=== PATIENT | male | born 1955 | race Caucasian/White ===

== ENCOUNTER 2018-08-21 21:24 | Inpatient (IN) | payer MEDICARE ==
[~2018-08-21] VITALS: Ht 182.9 cm; Wt 132.0 kg
--- NOTE | 2018-08-21 21:39 | PHYS DOC ---
Adult General Chief Complaint Chief Complaint: MECHANICAL FALL HPI HPI Patient is a 63 year old male presents via EMS for evaluation of left hip pain after ground level fall on the ice tonight. Patient has been drinking alcohol, slipped on the ice, was unable to get up secondary to left hip pain. Patient denies hitting his head or loss of consciousness. He denies other injuries. Review of Systems Review of Systems Constitutional: Denies fever or chills [] Eyes: Denies change in visual acuity, redness, or eye pain [] HENT: Denies nasal congestion or sore throat [] Respiratory: Denies cough or shortness of breath [] Cardiovascular: No additional information not addressed in HPI [] GI: Denies abdominal pain, nausea, vomiting, bloody stools or diarrhea [] : Denies dysuria or hematuria [] Musculoskeletal: Left hip pain[] Integument: Denies rash or skin lesions [] Neurologic: Denies headache, focal weakness or sensory changes [] Endocrine: Denies polyuria or polydipsia [] All other systems were reviewed and found to be within normal limits, except as documented in this note. Current Medications Current Medications Current Medications Medications (Trade) Dose Ordered Sig/Rosa Start Time Stop Time Status Last Admin Dose Admin Fentanyl Citrate (Fentanyl 2ml Vial) 50 mcg 1X ONCE 08/22/18 00:00 08/22/18 00:01 DC 08/22/18 00:15 50 MCG Morphine Sulfate (Morphine Sulfate) 4 mg PRN Q2HR PRN 08/22/18 00:30 08/23/18 00:29 UNV Ondansetron HCl (Zofran) 4 mg PRN Q8HRS PRN 08/22/18 00:30 08/23/18 00:29 UNV Allergies Allergies Allergies Coded Allergies Type Severity Reaction Last Updated Verified No Known Drug Allergies 08/21/18 No Physical Exam Physical Exam Constitutional: Well developed, well nourished, + IN PAIN, non-toxic appearance , SMELLS OF ETOH. [] HENT: Normocephalic, atraumatic, nose normal. [] Eyes: PERRLA, EOMI, conjunctiva normal, no discharge. [] Neck: Normal range of motion, no tenderness, supple, no stridor. [] Cardiovascular:Heart rate regular rhythm, no murmur [] Lungs & Thorax: Bilateral breath sounds clear to auscultation [] Abdomen: Bowel sounds normal, soft, no tenderness, no masses, no pulsatile masses. [] Skin: Warm, dry, no erythema, no rash. [] Back: No tenderness. [] Extremities: LEFT HIP TTP, SHORTENED AND ROTATED. [] Neurologic: Alert and oriented X 3, normal motor function, normal sensory function, no focal deficits noted. [] Psychologic: Affect normal, judgement normal, mood normal. [] Current Patient Data Vital Signs Vital Signs Date Time Temp Pulse Resp B/P (MAP) Pulse Ox O2 Delivery O2 Flow Rate FiO2 08/22/18 00:15 16 96 08/21/18 23:01 Room Air 08/21/18 21:24 98.3 84 197/88 (124) 98.3 Lab Values Laboratory Tests Test 08/21/18 22:00 08/21/18 23:10 Sodium Level 138 mmol/L (136-145) Potassium Level 4.4 mmol/L (3.5-5.1) Chloride Level 100 mmol/L (98-107) Carbon Dioxide Level 26 mmol/L (21-32) Anion Gap 12 (6-14) Blood Urea Nitrogen 7 mg/dL (8-26) L Creatinine 0.9 mg/dL (0.7-1.3) Estimated GFR (Cockcroft-Gault) 84.7 BUN/Creatinine Ratio 8 (6-20) Glucose Level 133 mg/dL (70-99) H Calcium Level 8.6 mg/dL (8.5-10.1) Total Bilirubin 0.8 mg/dL (0.2-1.0) Aspartate Amino Transferase (AST) 69 U/L (15-37) H Alanine Aminotransferase (ALT) 58 U/L (16-63) Alkaline Phosphatase 173 U/L (46-116) H Total Protein 8.2 g/dL (6.4-8.2) Albumin 3.3 g/dL (3.4-5.0) L Albumin/Globulin Ratio 0.7 (1.0-1.7) L White Blood Count 5.5 x10^3/uL (4.0-11.0) Red Blood Count 4.18 x10^6/uL (4.30-5.70) L Hemoglobin 13.0 g/dL (13.0-17.5) Hematocrit 38.5 % (39.0-53.0) L Mean Corpuscular Volume 92 fL (79-100) Mean Corpuscular Hemoglobin 31 pg (25-35) Mean Corpuscular Hemoglobin Concent 34 g/dL (31-37) Red Cell Distribution Width 15.1 % (11.5-14.5) H Platelet Count 128 x10^3/uL (140-400) L Neutrophils (%) (Auto) 60 % (31-73) Lymphocytes (%) (Auto) 23 % (24-48) L Monocytes (%) (Auto) 15 % (0-9) H Eosinophils (%) (Auto) 2 % (0-3) Basophils (%) (Auto) 1 % (0-3) Neutrophils # (Auto) 3.3 x10^3uL (1.8-7.7) Lymphocytes # (Auto) 1.2 x10^3/uL (1.0-4.8) Monocytes # (Auto) 0.8 x10^3/uL (0.0-1.1) Eosinophils # (Auto) 0.1 x10^3/uL (0.0-0.7) Basophils # (Auto) 0.1 x10^3/uL (0.0-0.2) Laboratory Tests 08/21/18 23:10 Laboratory Tests 08/21/18 22:00 EKG EKG [] Radiology/Procedures Radiology/Procedures [REASON: fall, +etoh PROCEDURE: CT HEAD AND CERVICAL SPINE WO Examination: CT HEAD AND CERVICAL SPINE WO History: PT FELL; HIT HEAD/PAIN TO HEAD/NECK Comparison/Correlation: 04/29/2011 CT head without contrast Findings: Axial images of the head were obtained without contrast. Sagittal and coronal reformatted images of the cervical spine were obtained. Atrophy is present. Volume loss ventriculomegaly noted. Right temporoparietal old infarct is present. No midline shift or mass effect. Atlantoaxial joint degenerative remodeling is present. Alignment of the cervical spine is normal. Evaluation of the cervical spine is limited due to significant artifact. No displaced fracture or bony destruction. Multilevel disc space narrowing of the lower cervical spine is present. Impression: No intracranial hemorrhage. Old right temporoparietal infarct. Alignment of the cervical spine is normal. No evidence of cervical spine fracture but this exam is limited due to artifact. Electronically signed by: Robert Bond MD (08/21/2018 11:41 PM) [facility] REASON: LEFT HIP PAIN AFTER FALL PROCEDURE: CT LOWER EXTREMITY WO LEFT Examination: CT left hip without contrast HISTORY: History of fall, left hip pain COMPARISON: None available Technique: Axial CT images of the left upper performed a contrast Exposure: One or more of the following individualized dose reduction techniques were utilized for this examination: 1. Automated exposure control 2. Adjustment of the mA and/or kV according to patient size 3. Use of iterative reconstruction technique. FINDINGS: The left femoral head is within the acetabulum. There is displaced intertrochanteric fracture of the left femur. The lesser trochanter is slightly displaced medially. Moderate joint space loss identified in the left hip joint likely degeneration. Partially visualized distended urinary bladder IMPRESSION: Displaced intertrochanteric fracture left femur. Electronically signed by: Sven Melvin MD (08/22/2018 12:04 AM) [facility] ] Course & Med Decision Making Course & Med Decision Making Pertinent Labs and Imaging studies reviewed. (See chart for details) [Patient has a left hip fracture, extremity is neurovascular intact, he is admitted to medicine with Dr. anderson, Dr. Novoa was called and notified of admission for hip fracture.] Dragon Disclaimer Dragon Disclaimer This electronic medical record was generated, in whole or in part, using a voice recognition dictation system. Departure Departure Impression: Primary Impression: Hip fracture Disposition: 09 ADMITTED INPATIENT Admitting Physician: Suzanne Anderson Condition: STABLE JAVIER BRAUN TREKKING GUIDE Aug 21, 2018 21:39
[2018-08-21 22:20] LABS: CALCIUM 8.6 mg/dL (8.5-10.1); CREATININE 0.9 mg/dL (0.7-1.3); GFR 84.7; POTASSIUM 4.4 mmol/L (3.5-5.1)
[2018-08-21 22:26] LABS: ALBUMIN 3.3 g/dL (3.4-5.0); ALBUMIN/GLOBULIN RATIO 0.7 (1.0-1.7); TOTAL BILIRUBIN 0.8 mg/dL (0.2-1.0); TOTAL PROTEIN 8.2 g/dL (6.4-8.2)
[2018-08-21] MEDS: fentaNYL PF VIAL 100 MCG/2 ML VIAL IV ONE ×2 (22:54→23:01)
[2018-08-21 23:20] LABS: BASO # 0.1 x10^3/uL (0.0-0.2); BASO % 1 % (0-3); EOS # 0.1 x10^3/uL (0.0-0.7); EOS % 2 % (0-3); HEMATOCRIT 38.5 % (39.0-53.0); LYMPH # 1.2 x10^3/uL (1.0-4.8); LYMPH % 23 % (24-48); MEAN CORPUSCULAR HEMOGLOBIN 31 pg (25-35); MEAN CORPUSCULAR HGB CONC 34 g/dL (31-37); MEAN CORPUSCULAR VOLUME 92 fL (79-100); MONO # 0.8 x10^3/uL (0.0-1.1); MONO % 15 % (0-9); NEUT # 3.3 x10^3uL (1.8-7.7); NEUT % 60 % (31-73); PLATELET COUNT 128 x10^3/uL (140-400); RED BLOOD COUNT 4.18 x10^6/uL (4.30-5.70); RED CELL DISTRIBUTION WIDTH 15.1 % (11.5-14.5); WHITE BLOOD COUNT 5.5 x10^3/uL (4.0-11.0)
--- NOTE | 2018-08-21 23:45 | RAD ---
Examination: CT HEAD AND CERVICAL SPINE WO History: PT FELL; HIT HEAD/PAIN TO HEAD/NECK Comparison/Correlation: 04/29/2011 CT head without contrast Findings: Axial images of the head were obtained without contrast. Sagittal and coronal reformatted images of the cervical spine were obtained. Atrophy is present. Volume loss ventriculomegaly noted. Right temporoparietal old infarct is present. No midline shift or mass effect. Atlantoaxial joint degenerative remodeling is present. Alignment of the cervical spine is normal. Evaluation of the cervical spine is limited due to significant artifact. No displaced fracture or bony destruction. Multilevel disc space narrowing of the lower cervical spine is present. Impression: No intracranial hemorrhage. Old right temporoparietal infarct. Alignment of the cervical spine is normal. No evidence of cervical spine fracture but this exam is limited due to artifact. Electronically signed by: Robert Bond MD (08/21/2018 11:41 PM) [facility]
[2018-08-22] MEDS ORDERED: fentaNYL PF VIAL 100 MCG/2 ML VIAL IV ONE
--- NOTE | 2018-08-22 00:09 | RAD ---
Examination: CT left hip without contrast HISTORY: History of fall, left hip pain COMPARISON: None available Technique: Axial CT images of the left upper performed a contrast Exposure: One or more of the following individualized dose reduction techniques were utilized for this examination: 1. Automated exposure control 2. Adjustment of the mA and/or kV according to patient size 3. Use of iterative reconstruction technique. FINDINGS: The left femoral head is within the acetabulum. There is displaced intertrochanteric fracture of the left femur. The lesser trochanter is slightly displaced medially. Moderate joint space loss identified in the left hip joint likely degeneration. Partially visualized distended urinary bladder IMPRESSION: Displaced intertrochanteric fracture left femur. Electronically signed by: Sven Melvin MD (08/22/2018 12:04 AM) [facility]
[2018-08-22] MEDS ORDERED: ONDANSETRON PF 4 MG/2 ML VIAL. IV PRN (00:30)
[2018-08-22] MEDS: MORPHINE SULFATE 4 MG/ML VIAL. IV PRN ×7 (01:31→22:50)
--- NOTE | 2018-08-22 01:41 | RAD ---
Examination: Frontal view of the chest and 2 views of the left hip HISTORY: History of preop, hip injury COMPARISON: None available Chest x-ray: Low lung volumes and technique accentuates heart size and pulmonary vascularity. Mild cardiomegaly. There is no acute infiltrate or visualized pneumothorax. Left hip: There is mild displaced fracture of the intertrochanteric portion of the left femur.Moderate joint space loss left hip joint. IMPRESSION: 1. Mild displaced intertrochanteric fracture left femur. 2. No acute cardiopulmonary findings Electronically signed by: Sven Melvin MD (08/22/2018 1:37 AM) [facility]
[2018-08-22 03:00] VITALS: BP 141/64
[2018-08-22 07:00] VITALS: BP 132/64
--- NOTE | 2018-08-22 09:26 | EKG ---
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 : 1955 Requested By: JAVIER BRAUN Order Number: [id number] Reading MD: Aquiles Cha Measurements Intervals [place] Rate: 93 P: -90 WI: 112 QRS: 56 QRSD: 92 T: 43 QT: 372 QTc: 465 Interpretive Statements SINUS RHYTHM Electronically Signed On 08-27-2018 17:37:47 CONTAINER PACKER OPERATOR by Aquiles Cha
[2018-08-22 11:00] VITALS: BP 131/64
--- NOTE | 2018-08-22 11:08 | NUR ---
SW following for discharge planning. Discussed with RN. Pt is having surgery today. SW will continue to follow.
[2018-08-22] MEDS ORDERED: LABETALOL 20 MG/4 ML DISP.SYRIN. IVP PRN (11:45)
[2018-08-22] MEDS ORDERED: KETOROLAC 15 MG/ML VIAL. IV ONE (11:45)
--- NOTE | 2018-08-22 11:54 | PDOC1 ---
History and Physical Date of Admission Date of Admission DATE: 08/22/18 TIME: 11:51 Source Source: Chart review, Patient History of Present Illness History of Present Illness Mr. Hines is a 63 year old male admit after a hard fall on the ice, that cause acute left hip pain. He had been drinking alcohol, and fell very hard, and was unable to get up secondary to left hip pain, he denies hitting his head or loss of consciousness. He denies other injuries. he has been retired for some time from an [employer] company. [place]. describes himself as active and can walk up stairs without problems he is unaware of any medical problems other than his weight, takes no meds Past Medical History Cardiovascular: No pertinent hx Pulmonary: No pertinent hx GI: No pertinent hx Heme/Onc: No pertinent hx Rheumatologic: No pertinent hx Infectious disease: No pertinent hx ENT: No pertinent hx Renal/: No pertinent hx Family History Family History: Hypertension Social History Smoke: No ALCOHOL: social Drugs: None Current Problem List Problem List Problems Medical Problems: (1) Hip fracture Status: Acute Current Medications Current Medications Current Medications Fentanyl Citrate (Fentanyl 2ml Vial) 50 mcg 1X ONCE IV Last administered on at 23:01; Start 08/21/18 at 22:00; Stop 08/21/18 at 22:02; Status DC Fentanyl Citrate (Fentanyl 2ml Vial) 50 mcg 1X ONCE IV Last administered on at 00:15; Start 08/22/18 at 00:00; Stop 08/22/18 at 00:01; Status DC Ondansetron HCl (Zofran) 4 mg PRN Q8HRS PRN IV NAUSEA/VOMITING; Start 08/22/18 at 00:30; Stop 08/23/18 at 00:29 Morphine Sulfate (Morphine Sulfate) 4 mg PRN Q2HR PRN IV PAIN Last administered on 08/22/18at 10:25; Start 08/22/18 at 00:30; Stop 08/23/18 at 00:29 Morphine Sulfate 5 mg/Ketorolac Tromethamine 30 mg/Ropivacaine 60 ml/ Epinephrine HCl 0.5 mg/Sodium Chloride 100 ml @ 100 mls/hr 1X ONCE INT ART ; Start 08/23/18 at 06:00; Stop 08/23/18 at 06:59 Labetalol HCl (Normodyne Iv Push) 20 mg PRN Q2HR PRN IVP HYPERTENSION, SEE COMMENTS; Start 08/22/18 at 11:45 Oxycodone/ Acetaminophen (Percocet 5/325) 1 tab PRN Q4HRS PRN PO PAIN; Start at 11:45 Ketorolac Tromethamine (Toradol 15mg Vial) 15 mg 1X ONCE IV ; Start 08/22/18 at 11:45; Stop 08/22/18 at 11:51; Status DC Allergies Allergies: Coded Allergies: No Known Drug Allergies (Unverified , 08/21/18) ROS General: No: Chills, Night Sweats, Fatigue, Malaise, Appetite, Other PSYCHOLOGICAL ROS: No: Anxiety, Behavioral Disorder, Concentration difficultie , Decreased libido, Depression, Disorientation, Hallucinations, Hostility, Irritablity, Memory difficulties, Mood Swings, Obsessive thoughts, Other Eyes: No Blurry vision, No Decreased vision, No Double vision, No Dry eyes, No Excessive tearing, No Eye Pain, No Itchy Eyes, No Loss of vision, No Photophobia , No Scotomata, No Uses contacts, No Uses glasses, No Other HEENT: No: Heacaches, Visual Changes, Hearing change, Nasal congestion, Nasal discharge, Oral lesions, Sinus pain, Sore Throat, Epistaxis, Sneezing, Snoring, Tinnitus, Vertigo, Vocal changes, Other Respiratory: No: Cough, Hemoptysis, Orthopnea, Pleuritic Pain, Shortness of breath, SOB with excertion, Sputum Changes, Stridor, Tachypnea, Wheezing, Other Cardiovascular: No Chest Pain, No Palpitations, No Orthopnea, No Paroxysmal Noc. Dyspnea, No Edema, No Lt Headedness, No Other Gastrointestinal: No Nausea, No Vomiting, No Abdominal Pain, No Diarrhea, No Constipation, No Melena, No Hematochezia, No Other Musculoskeletal: Yes Gait Disturbance, Yes Joint Pain (today), Yes Joint Stiffness (new today) Neurological: No Behavorial Changes, No Bowel/Bladder ControlChng, No Confusion , No Dizziness, No Gait Disturbance, No Headaches, No Impaired Coord/balance, No Memory Loss, No Numbness/Tingling, No Seizures, No Speech Problems, No Tremors, No Visual Changes, No Weakness, No Other Skin: No Dry Skin, No Eczema, No Hair Changes, No Lumps, No Mole Changes, No Mottling, No Nail Changes, No Pruritus, No Rash, No Skin Lesion Changes, No Other, No Acne Physical Exam General: Alert, Cooperative, No acute distress HEENT: PERRLA, EOMI, Mucous membr. moist/pink Lungs: Clear to auscultation, Normal air movement Heart: S1S2, no gallops, no murmurs Rectal Exam: not examined Extremities: No clubbing, No cyanosis, No edema, Normal pulses Skin: No rashes, No breakdown, No significant lesion Neuro: Normal speech, Normal tone, Sensation intact Psych/Mental Status: Mood NL Vitals Vitals Vital Signs Date Time Temp Pulse Resp B/P (MAP) Pulse Ox O2 Delivery O2 Flow Rate FiO2 08/22/18 11:25 95 Room Air 08/22/18 03:00 97.8 97 18 141/64 (89) 97.8 Labs Labs Laboratory Tests Test 08/21/18 22:00 08/21/18 23:10 Sodium Level 138 mmol/L (136-145) Potassium Level 4.4 mmol/L (3.5-5.1) Chloride Level 100 mmol/L (98-107) Carbon Dioxide Level 26 mmol/L (21-32) Anion Gap 12 (6-14) Blood Urea Nitrogen 7 mg/dL (8-26) Creatinine 0.9 mg/dL (0.7-1.3) Estimated GFR (Cockcroft-Gault) 84.7 BUN/Creatinine Ratio 8 (6-20) Glucose Level 133 mg/dL (70-99) Calcium Level 8.6 mg/dL (8.5-10.1) Total Bilirubin 0.8 mg/dL (0.2-1.0) Aspartate Amino Transf (AST/SGOT) 69 U/L (15-37) Alanine Aminotransferase (ALT/SGPT) 58 U/L (16-63) Alkaline Phosphatase 173 U/L (46-116) Total Protein 8.2 g/dL (6.4-8.2) Albumin 3.3 g/dL (3.4-5.0) Albumin/Globulin Ratio 0.7 (1.0-1.7) White Blood Count 5.5 x10^3/uL (4.0-11.0) Red Blood Count 4.18 x10^6/uL (4.30-5.70) Hemoglobin 13.0 g/dL (13.0-17.5) Hematocrit 38.5 % (39.0-53.0) Mean Corpuscular Volume 92 fL (79-100) Mean Corpuscular Hemoglobin 31 pg (25-35) Mean Corpuscular Hemoglobin Concent 34 g/dL (31-37) Red Cell Distribution Width 15.1 % (11.5-14.5) Platelet Count 128 x10^3/uL (140-400) Neutrophils (%) (Auto) 60 % (31-73) Lymphocytes (%) (Auto) 23 % (24-48) Monocytes (%) (Auto) 15 % (0-9) Eosinophils (%) (Auto) 2 % (0-3) Basophils (%) (Auto) 1 % (0-3) Neutrophils # (Auto) 3.3 x10^3uL (1.8-7.7) Lymphocytes # (Auto) 1.2 x10^3/uL (1.0-4.8) Monocytes # (Auto) 0.8 x10^3/uL (0.0-1.1) Eosinophils # (Auto) 0.1 x10^3/uL (0.0-0.7) Basophils # (Auto) 0.1 x10^3/uL (0.0-0.2) Laboratory Tests Test 08/21/18 22:00 08/21/18 23:10 Sodium Level 138 mmol/L (136-145) Potassium Level 4.4 mmol/L (3.5-5.1) Chloride Level 100 mmol/L (98-107) Carbon Dioxide Level 26 mmol/L (21-32) Anion Gap 12 (6-14) Blood Urea Nitrogen 7 mg/dL (8-26) Creatinine 0.9 mg/dL (0.7-1.3) Estimated GFR (Cockcroft-Gault) 84.7 BUN/Creatinine Ratio 8 (6-20) Glucose Level 133 mg/dL (70-99) Calcium Level 8.6 mg/dL (8.5-10.1) Total Bilirubin 0.8 mg/dL (0.2-1.0) Aspartate Amino Transf (AST/SGOT) 69 U/L (15-37) Alanine Aminotransferase (ALT/SGPT) 58 U/L (16-63) Alkaline Phosphatase 173 U/L (46-116) Total Protein 8.2 g/dL (6.4-8.2) Albumin 3.3 g/dL (3.4-5.0) Albumin/Globulin Ratio 0.7 (1.0-1.7) White Blood Count 5.5 x10^3/uL (4.0-11.0) Red Blood Count 4.18 x10^6/uL (4.30-5.70) Hemoglobin 13.0 g/dL (13.0-17.5) Hematocrit 38.5 % (39.0-53.0) Mean Corpuscular Volume 92 fL (79-100) Mean Corpuscular Hemoglobin 31 pg (25-35) Mean Corpuscular Hemoglobin Concent 34 g/dL (31-37) Red Cell Distribution Width 15.1 % (11.5-14.5) Platelet Count 128 x10^3/uL (140-400) Neutrophils (%) (Auto) 60 % (31-73) Lymphocytes (%) (Auto) 23 % (24-48) Monocytes (%) (Auto) 15 % (0-9) Eosinophils (%) (Auto) 2 % (0-3) Basophils (%) (Auto) 1 % (0-3) Neutrophils # (Auto) 3.3 x10^3uL (1.8-7.7) Lymphocytes # (Auto) 1.2 x10^3/uL (1.0-4.8) Monocytes # (Auto) 0.8 x10^3/uL (0.0-1.1) Eosinophils # (Auto) 0.1 x10^3/uL (0.0-0.7) Basophils # (Auto) 0.1 x10^3/uL (0.0-0.2) VTE Prophylaxis Ordered VTE Prophylaxis Devices: Yes VTE Pharmacological Prophylaxi: No Assessment/Plan Assessment/Plan fall on icu acute pain to hip left hip fracture. morbid obesity, BMI 40 JANAE OLIVARES MD Aug 22, 2018 11:54
[2018-08-22] MEDS ORDERED: IV NORMAL SALINE 1000ML BAG 1,000 ML IV ONE (12:00)
[2018-08-22] MEDS: oxyCODONE/APAP 5/325 1 TAB TABLET PO PRN ×2 (12:06→17:01)
[2018-08-22] MEDS ORDERED: LIDOCAINE 2% JELLY 6ML IN APPLICATOR. MM ONE (14:30)
[2018-08-22 15:00] VITALS: BP 151/58
[2018-08-22 19:25] VITALS: BP 153/63
[2018-08-22] MEDS ORDERED: ceFAZolin SODIUM 1 GM in IV DEXTROSE 5% 50 ML IV ONE (19:30)
--- NOTE | 2018-08-22 19:36 | PDOC2 ---
CONSULT Date of Consult Date of Consult DATE: 08/22/18 TIME: 19:28 Reason for Consult Reason for Consult: left hip fracture Referring Physician Referring Physician: Justin Identification/Chief Complaint Chief Complaint left hip pain Source Source: Chart review, Patient History of Present Illness Reason for Visit: Ground levelfall, no LOC, no other pain. No prior reena of any hip pain or problems. Has left sided hip pain, unable to ambulate, pain worse with any movement, a little better at rest. Some pain in thigh, no radiation of pain to lower leg Past Medical History Cardiovascular: No pertinent hx Pulmonary: No pertinent hx GI: No pertinent hx Heme/Onc: No pertinent hx Rheumatologic: No pertinent hx Infectious disease: No pertinent hx ENT: No pertinent hx Renal/: No pertinent hx Family History Family History: Hypertension Social History No ALCOHOL: social Drugs: None Current Problem List Problem List Problems Medical Problems: (1) Hip fracture Status: Acute Current Medications Current Medications Current Medications Fentanyl Citrate (Fentanyl 2ml Vial) 50 mcg 1X ONCE IV Last administered on at 23:01; Start 08/21/18 at 22:00; Stop 08/21/18 at 22:02; Status DC Fentanyl Citrate (Fentanyl 2ml Vial) 50 mcg 1X ONCE IV Last administered on at 00:15; Start 08/22/18 at 00:00; Stop 08/22/18 at 00:01; Status DC Ondansetron HCl (Zofran) 4 mg PRN Q8HRS PRN IV NAUSEA/VOMITING; Start 08/22/18 at 00:30; Stop 08/23/18 at 00:29 Morphine Sulfate (Morphine Sulfate) 4 mg PRN Q2HR PRN IV PAIN Last administered on 08/22/18at 19:14; Start 08/22/18 at 00:30; Stop 08/23/18 at 00:29 Morphine Sulfate 5 mg/Ketorolac Tromethamine 30 mg/Ropivacaine 60 ml/ Epinephrine HCl 0.5 mg/Sodium Chloride 100 ml @ 100 mls/hr 1X ONCE INT ART ; Start 08/23/18 at 06:00; Stop 08/23/18 at 06:59 Labetalol HCl (Normodyne Iv Push) 20 mg PRN Q2HR PRN IVP HYPERTENSION, SEE COMMENTS; Start 08/22/18 at 11:45 Oxycodone/ Acetaminophen (Percocet 5/325) 1 tab PRN Q4HRS PRN PO PAIN Last administered on 08/22/18at 17:01; Start 08/22/18 at 11:45 Ketorolac Tromethamine (Toradol 15mg Vial) 15 mg 1X ONCE IV Last administered on 08/22/18at 12:06; Start 08/22/18 at 11:45; Stop 08/22/18 at 11:51; Status DC Sodium Chloride 1,000 ml @ 100 mls/hr 1X ONCE IV Last administered on at 12:00; Start 08/22/18 at 12:00; Stop 08/22/18 at 21:59 Vitamin D (Vitamin D3) 5,000 unit DAILY PO ; Start 08/23/18 at 09:00 Prochlorperazine Edisylate (Compazine) 5 mg PACU PRN PRN IV NAUSEA, MRX1; Start 08/23/18 at 07:00; Stop 08/24/18 at 06:59 Hydromorphone HCl (Dilaudid) 0.5 mg PRN Q10MIN PRN IV SEV PAIN, Second choice; Start 08/23/18 at 07:00; Stop 08/24/18 at 06:59 Lidocaine HCl (Xylocaine-Mpf 1% 2ml Vial) 2 ml PRN 1X PRN ID IV START; Start at 07:00; Stop 08/24/18 at 06:59 Ringer's Solution 1,000 ml @ 30 mls/hr Q24H IV ; Start 08/23/18 at 07:00; Stop 08/23/18 at 18:59 Morphine Sulfate (Morphine Sulfate) 1 mg PRN Q10MIN PRN IV SEVERE PAIN; Start 08/23/18 at 07:00; Stop 08/24/18 at 06:59 Fentanyl Citrate (Fentanyl 2ml Vial) 50 mcg PRN Q5MIN PRN IV MODERATE TO SEVERE PAIN; Start 08/23/18 at 07:00; Stop 08/24/18 at 06:59 Fentanyl Citrate (Fentanyl 2ml Vial) 25 mcg PRN Q5MIN PRN IV MILD PAIN; Start 08/23/18 at 07:00; Stop 08/24/18 at 06:59 Ondansetron HCl (Zofran) 4 mg PRN Q6HRS PRN IV NAUSEA/VOMITING; Start 08/23/18 at 07:00; Stop 08/24/18 at 06:59 Lidocaine HCl (Glydo (Lidocaine) Jelly) 1 rachelle 1X ONCE MM Last administered on 08/22/18at 14:47; Start 08/22/18 at 14:30; Stop 08/22/18 at 14:31; Status DC Allergies Allergies: Coded Allergies: No Known Drug Allergies (Unverified , 08/21/18) ROS General: No: Chills, Night Sweats, Fatigue, Malaise, Appetite, Other PSYCHOLOGICAL ROS: No: Anxiety, Behavioral Disorder, Concentration difficultie , Decreased libido, Depression, Disorientation, Hallucinations, Hostility, Irritablity, Memory difficulties, Mood Swings, Obsessive thoughts, Physical abuse, Sexual abuse, Sleep disturbances, Suicidal ideation, Other Eyes: No Blurry vision, No Decreased vision, No Double vision, No Dry eyes, No Excessive tearing, No Eye Pain, No Itchy Eyes, No Loss of vision, No Photophobia , No Scotomata, No Uses contacts, No Uses glasses, No Other HEENT: No: Heacaches, Visual Changes, Hearing change, Nasal congestion, Nasal discharge, Oral lesions, Sinus pain, Sore Throat, Epistaxis, Sneezing, Snoring, Tinnitus, Vertigo, Vocal changes, Other Hematological and Lymphatic: No: Bleeding Problems, Blood Clots, Blood Transfusions, Brusing, Night Sweats, Pallor, Swollen Lymph Nodes, Other ENDOCRINE: No: Breast Changes, Galactorrhea, Hair Pattern Changes, Hot Flashes , Malaise/lethargy, Mood Swings, Palpitations, Polydipsia/polyuria, Skin Changes , Temperature Intolerance, Unexpected Weight Changes, Other Respiratory: No: Cough, Hemoptysis, Orthopnea, Pleuritic Pain, Shortness of breath, SOB with excertion, Sputum Changes, Stridor, Tachypnea, Wheezing, Other Cardiovascular: No Chest Pain, No Palpitations, No Orthopnea, No Paroxysmal Noc. Dyspnea, No Edema, No Lt Headedness, No Other Gastrointestinal: No Nausea, No Vomiting, No Abdominal Pain, No Diarrhea, No Constipation, No Melena, No Hematochezia, No Other Genitourinary: No Dysuria, No Frequency, No Incontinence, No Hematuria, No Retention, No Discharge, No Urgency, No Pain, No Flank Pain, No Other, No , No , No , No , No , No , No Musculoskeletal: Yes Joint Pain, Yes Muscle Pain; No Gait Disturbance, No Joint Stiffness, No Joint Swelling, No Muscular Weakness, No Pain In:, No Swelling In:, No Other Neurological: No Behavorial Changes, No Bowel/Bladder ControlChng, No Confusion , No Dizziness, No Gait Disturbance, No Headaches, No Impaired Coord/balance, No Memory Loss, No Numbness/Tingling, No Seizures, No Speech Problems, No Tremors, No Visual Changes, No Weakness, No Other Skin: No Dry Skin, No Eczema, No Hair Changes, No Lumps, No Mole Changes, No Mottling, No Nail Changes, No Pruritus, No Rash, No Skin Lesion Changes, No Other, No Acne Physical Exam General: Alert, Oriented X3 HEENT: Atraumatic, EOMI Lungs: Other (resp unlabored, symm chest rise) Heart: Regular rate Abdomen: Soft, No tenderness Extremities: No edema, Normal pulses Skin: No rashes Neuro: Normal speech, Strength at 5/5 X4 ext, Sensation intact Psych/Mental Status: Mental status NL, Mood NL MUSCULOSKELETAL: Other Vitals VITALS Vital Signs Date Time Temp Pulse Resp B/P (MAP) Pulse Ox O2 Delivery O2 Flow Rate FiO2 08/22/18 19:14 96 Room Air 08/22/18 15:00 97.8 95 18 151/58 (89) 97.8 Labs Labs Laboratory Tests Test 08/21/18 22:00 08/21/18 23:10 Sodium Level 138 mmol/L (136-145) Potassium Level 4.4 mmol/L (3.5-5.1) Chloride Level 100 mmol/L (98-107) Carbon Dioxide Level 26 mmol/L (21-32) Anion Gap 12 (6-14) Blood Urea Nitrogen 7 mg/dL (8-26) Creatinine 0.9 mg/dL (0.7-1.3) Estimated GFR (Cockcroft-Gault) 84.7 BUN/Creatinine Ratio 8 (6-20) Glucose Level 133 mg/dL (70-99) Calcium Level 8.6 mg/dL (8.5-10.1) Total Bilirubin 0.8 mg/dL (0.2-1.0) Aspartate Amino Transf (AST/SGOT) 69 U/L (15-37) Alanine Aminotransferase (ALT/SGPT) 58 U/L (16-63) Alkaline Phosphatase 173 U/L (46-116) Total Protein 8.2 g/dL (6.4-8.2) Albumin 3.3 g/dL (3.4-5.0) Albumin/Globulin Ratio 0.7 (1.0-1.7) White Blood Count 5.5 x10^3/uL (4.0-11.0) Red Blood Count 4.18 x10^6/uL (4.30-5.70) Hemoglobin 13.0 g/dL (13.0-17.5) Hematocrit 38.5 % (39.0-53.0) Mean Corpuscular Volume 92 fL (79-100) Mean Corpuscular Hemoglobin 31 pg (25-35) Mean Corpuscular Hemoglobin Concent 34 g/dL (31-37) Red Cell Distribution Width 15.1 % (11.5-14.5) Platelet Count 128 x10^3/uL (140-400) Neutrophils (%) (Auto) 60 % (31-73) Lymphocytes (%) (Auto) 23 % (24-48) Monocytes (%) (Auto) 15 % (0-9) Eosinophils (%) (Auto) 2 % (0-3) Basophils (%) (Auto) 1 % (0-3) Neutrophils # (Auto) 3.3 x10^3uL (1.8-7.7) Lymphocytes # (Auto) 1.2 x10^3/uL (1.0-4.8) Monocytes # (Auto) 0.8 x10^3/uL (0.0-1.1) Eosinophils # (Auto) 0.1 x10^3/uL (0.0-0.7) Basophils # (Auto) 0.1 x10^3/uL (0.0-0.2) Laboratory Tests Test 08/21/18 22:00 08/21/18 23:10 Sodium Level 138 mmol/L (136-145) Potassium Level 4.4 mmol/L (3.5-5.1) Chloride Level 100 mmol/L (98-107) Carbon Dioxide Level 26 mmol/L (21-32) Anion Gap 12 (6-14) Blood Urea Nitrogen 7 mg/dL (8-26) Creatinine 0.9 mg/dL (0.7-1.3) Estimated GFR (Cockcroft-Gault) 84.7 BUN/Creatinine Ratio 8 (6-20) Glucose Level 133 mg/dL (70-99) Calcium Level 8.6 mg/dL (8.5-10.1) Total Bilirubin 0.8 mg/dL (0.2-1.0) Aspartate Amino Transf (AST/SGOT) 69 U/L (15-37) Alanine Aminotransferase (ALT/SGPT) 58 U/L (16-63) Alkaline Phosphatase 173 U/L (46-116) Total Protein 8.2 g/dL (6.4-8.2) Albumin 3.3 g/dL (3.4-5.0) Albumin/Globulin Ratio 0.7 (1.0-1.7) White Blood Count 5.5 x10^3/uL (4.0-11.0) Red Blood Count 4.18 x10^6/uL (4.30-5.70) Hemoglobin 13.0 g/dL (13.0-17.5) Hematocrit 38.5 % (39.0-53.0) Mean Corpuscular Volume 92 fL (79-100) Mean Corpuscular Hemoglobin 31 pg (25-35) Mean Corpuscular Hemoglobin Concent 34 g/dL (31-37) Red Cell Distribution Width 15.1 % (11.5-14.5) Platelet Count 128 x10^3/uL (140-400) Neutrophils (%) (Auto) 60 % (31-73) Lymphocytes (%) (Auto) 23 % (24-48) Monocytes (%) (Auto) 15 % (0-9) Eosinophils (%) (Auto) 2 % (0-3) Basophils (%) (Auto) 1 % (0-3) Neutrophils # (Auto) 3.3 x10^3uL (1.8-7.7) Lymphocytes # (Auto) 1.2 x10^3/uL (1.0-4.8) Monocytes # (Auto) 0.8 x10^3/uL (0.0-1.1) Eosinophils # (Auto) 0.1 x10^3/uL (0.0-0.7) Basophils # (Auto) 0.1 x10^3/uL (0.0-0.2) Images Images Xrays/CT reviewed, comminued left intertrochanteric hip fracture Assessment/Plan Assessment/Plan Closed left intertrochanteric hip fracture Discussed risks, benefits and alternatives. We talked about bleeding, nerve injury, failure of fixation, bone healing problems, expected rehab, possibility of infection, need for additional surgery, pain, amongst others. Surgery in ZARINA ERWIN II, MD Aug 22, 2018 19:36
[2018-08-22] MEDS ORDERED: ceFAZolin SODIUM 3 GM in IV DEXTROSE 5% 100ML 100 ML IV PRN (19:45)
[2018-08-22 23:15] VITALS: BP 134/89
[2018-08-23] VITALS (13 sets, daily range): BP systolic 106–152; BP diastolic 50–70
[2018-08-23] MEDS: oxyCODONE/APAP 5/325 1 TAB TABLET PO PRN ×3 (03:13→21:59)
[2018-08-23] MEDS ORDERED: MORPHINE SULFATE 5 MG, KETOROLAC 30MG VIAL 30 MG, ROPIVacaine 0.5% PF 60 ML, EPINEPHrin... INT ART ONE ×5 (06:00)
[2018-08-23] MEDS ORDERED: fentaNYL PF VIAL 100 MCG/2 ML VIAL IV PRN (07:00)
[2018-08-23] MEDS ORDERED: LIDOCAINE 1% PF 2 ML VIAL. ID PRN (07:00)
[2018-08-23] MEDS ORDERED: PROCHLORPERAZINE 10 MG/2 ML VIAL. IV PRN (07:00)
[2018-08-23] MEDS ORDERED: ONDANSETRON PF 4 MG/2 ML VIAL. IV PRN (07:00)
[2018-08-23] MEDS ORDERED: HYDROmorphone 2 MG/ML VIAL IV PRN (07:00)
[2018-08-23] MEDS ORDERED: ONDANSETRON PF 4 MG/2 ML VIAL. ONE (07:27)
[2018-08-23] MEDS ORDERED: DEXAMETHASONE SOD PHOS 20 MG/5 ML VIAL. ONE (07:27)
[2018-08-23] MEDS ORDERED: LIDOCAINE 2% PF 5 ML VIAL. ONE (07:27)
[2018-08-23] MEDS ORDERED: PROPOFOL 20 ML IV ONE (07:28)
[2018-08-23] MEDS ORDERED: fentaNYL PF VIAL 100 MCG/2 ML VIAL ONE ×2 (07:56→09:18)
[2018-08-23] MEDS ORDERED: MIDAZOLAM HCL/PF 2 MG/2 ML VIAL. ONE (07:56)
[2018-08-23] MEDS: IV RINGERS,LACTATED 1000ML 1,000 ML IV SCH ×2 (08:43→11:48)
[2018-08-23] MEDS ORDERED: ROCURONIUM 50 MG/5 ML VIAL. ONE (08:56)
[2018-08-23] MEDS: ceFAZolin SODIUM 3 GM in IV DEXTROSE 5% 100ML 100 ML IV SCH ×3 (09:11→21:57)
[2018-08-23] MEDS ORDERED: GLYCOPYRROLATE 1 MG/5 ML VIAL. ONE (10:01)
[2018-08-23] MEDS ORDERED: NEOSTIGMINE 10 MG/10 ML VIAL. ONE (10:01)
[2018-08-23] MEDS ORDERED: SEVOFLURANE 61 TO 120 MINUTES. IH ONE (10:05)
--- NOTE | 2018-08-23 10:43 | PDOC4 ---
Operative Note Operative Note Due to procedure: 08/23/2018 Surgeon: Chele Erwin Asst.: Romelia Marsh, certified public accountant Preoperative diagnosis: Closed, displaced, comminuted, left intertrochanteric hip fracture Postoperative diagnosis: Same Procedure performed: Closed reduction and intramedullary nailing of left hip fracture Anesthesia: Gen. Findings: Acute fracture Blood loss: 200mL Complications: none Components inserted: 10 x 18 Barboza and nephew [employer] InterTAN 125� femoral nail , 120 mm lag screw, 115 mm compression screw, distal interlocking screw Reason for procedure: Patient is a very pleasant gentleman who had a ground- level fall sustaining the above injury. I�d seen him in consultation, please see my consult note for full details. We have discussed the risks, benefits, and alternatives to the above surgery and he wished to proceed. Description of procedure: Patient was greeted in the preoperative area by myself for the correct extremity was verified and marked. He was taken to the operative suite and his antibiotics were started as he was brought back. Once in the operating room, he underwent successful induction of a general anesthetic and was then transferred gently supine to the fracture table. He was placed into the appropriate position, left leg in a traction ski boot and right leg in the well-leg nettles. Padded perineal post was used. His arms were secured above his chest across a pillow. I then brought in C-arm and perform a reduction maneuver confirming adequate reduction under biplanar fluoroscopy. After this, the left hip and leg were prepped and draped in our usual sterile fashion and we conducted our standard preoperative timeout. After this, I palpated for his greater trochanter and ASIS and basilia a line on sking At the intersection point of these, I then made my skin incision and bluntly dissected down to the tip of the greater trochanter and used biplanar fluoroscopy to identify an appropriate starting point for my guidepin which I then advanced down past the lesser trochanter. This was all accomplished well and music library assistant lifted anteriorly underneath the thigh at the fracture site. I then gained entry to the proximal femur with the entry reamer using the soft tissue protector. After this I impacted my nail and position using fluoroscopy as a guide. While reaming and impacting the nail, the music library assistant was still holding pressure on the posterior thigh. I then placed the lateral trocar again skin, and incised skin in accordance with this and bluntly split down to bone. I then seated the trochars and used biplanar fluoroscopy to achieve as close to a center center position with the tip of my guidepin as I was able to. I then used my lateral entry drill and then placed my derotation bar. I then measured and drilled for my leg screw. After this I placed my leg screw followed by my compression screw. I then removed this trocar and placed the distal interlocking screw trocar again skin and made a stab incision and spread down to bone. I then seated this trocar and drilled and measured and then subsequently placed my distal interlocking screw. I then remove the insertion handle and trochars and took my final images. I was satisfied with fracture reduction and hardware position. The wounds were thoroughly irrigated. I injected my periarticular mixture into the ernesto-incisional soft tissues. Deep layers were closed with simple interrupted 0 Vicryl. Inverted interrupted 2-0 Vicryl was used for subcutaneous tissue and james for skin. Sterile dressing was applied after the hip and leg were cleansed and dried. Traction was released after placement of the distal interlocking screw. The bed was reassembled and the perineal post was removed. He was laid gently supine on the fracture table. He was transferred gently supine to the hospital bed and taken to PACU in a stable and extubated condition. Postoperative plan is to allow partial weightbearing. He will receive DVT and antibiotic prophylaxis. He�ll be readmitted to the hospitalist. He will also receive PT and OT. CHELE ERWIN II, MD Aug 23, 2018 10:43
[2018-08-23] MEDS: fentaNYL PF VIAL 100 MCG/2 ML VIAL IV PRN ×2 (10:57→11:12)
[2018-08-23] MEDS ORDERED: MORPHINE SULFATE 4 MG/ML VIAL. ONE (11:33)
[2018-08-23] MEDS: MORPHINE SULFATE 4 MG/ML VIAL. IV PRN ×2 (11:34→11:54)
[2018-08-23 11:59] LABS: PROTHROMBIN TIME PATIENT 17.1 SEC (11.7-14.0)
--- NOTE | 2018-08-23 13:12 | PDOC ---
PROGRESS NOTES Chief Complaint Chief Complaint fall on ice outside restaurant acute pain to hip left hip fracture. morbid obesity, BMI 40 History of Present Illness History of Present Illness s/p surg pain is better no event family here, Vitals Vitals Vital Signs Date Time Temp Pulse Resp B/P (MAP) Pulse Ox O2 Delivery O2 Flow Rate FiO2 08/23/18 11:54 18 95 Nasal Cannula 2.0 08/23/18 11:52 99.3 80 150/67 99.3 Physical Exam General: Alert, Oriented X3, Cooperative, No acute distress Heart: Regular rate, Normal S1 Lungs: Clear Abdomen: Soft, No tenderness Extremities: No edema, Normal pulses Skin: No rashes Labs LABS Laboratory Tests Test 08/23/18 11:30 Prothrombin Time 17.1 SEC (11.7-14.0) Prothromb Time International Ratio 1.4 (0.8-1.1) Assessment and Plan Assessmemt and Plan Problems Medical Problems: (1) Hip fracture Status: Acute Comment Review of Relevant I have reviewed the following items ham (where applicable) has been applied. Labs Laboratory Tests Test 08/21/18 22:00 08/21/18 23:10 08/23/18 11:30 Sodium Level 138 mmol/L (136-145) Potassium Level 4.4 mmol/L (3.5-5.1) Chloride Level 100 mmol/L (98-107) Carbon Dioxide Level 26 mmol/L (21-32) Anion Gap 12 (6-14) Blood Urea Nitrogen 7 mg/dL (8-26) Creatinine 0.9 mg/dL (0.7-1.3) Estimated GFR (Cockcroft-Gault) 84.7 BUN/Creatinine Ratio 8 (6-20) Glucose Level 133 mg/dL (70-99) Calcium Level 8.6 mg/dL (8.5-10.1) Total Bilirubin 0.8 mg/dL (0.2-1.0) Aspartate Amino Transf (AST/SGOT) 69 U/L (15-37) Alanine Aminotransferase (ALT/SGPT) 58 U/L (16-63) Alkaline Phosphatase 173 U/L (46-116) Total Protein 8.2 g/dL (6.4-8.2) Albumin 3.3 g/dL (3.4-5.0) Albumin/Globulin Ratio 0.7 (1.0-1.7) White Blood Count 5.5 x10^3/uL (4.0-11.0) Red Blood Count 4.18 x10^6/uL (4.30-5.70) Hemoglobin 13.0 g/dL (13.0-17.5) Hematocrit 38.5 % (39.0-53.0) Mean Corpuscular Volume 92 fL (79-100) Mean Corpuscular Hemoglobin 31 pg (25-35) Mean Corpuscular Hemoglobin Concent 34 g/dL (31-37) Red Cell Distribution Width 15.1 % (11.5-14.5) Platelet Count 128 x10^3/uL (140-400) Neutrophils (%) (Auto) 60 % (31-73) Lymphocytes (%) (Auto) 23 % (24-48) Monocytes (%) (Auto) 15 % (0-9) Eosinophils (%) (Auto) 2 % (0-3) Basophils (%) (Auto) 1 % (0-3) Neutrophils # (Auto) 3.3 x10^3uL (1.8-7.7) Lymphocytes # (Auto) 1.2 x10^3/uL (1.0-4.8) Monocytes # (Auto) 0.8 x10^3/uL (0.0-1.1) Eosinophils # (Auto) 0.1 x10^3/uL (0.0-0.7) Basophils # (Auto) 0.1 x10^3/uL (0.0-0.2) Prothrombin Time 17.1 SEC (11.7-14.0) Prothromb Time International Ratio 1.4 (0.8-1.1) Laboratory Tests Test 08/23/18 11:30 Prothrombin Time 17.1 SEC (11.7-14.0) Prothromb Time International Ratio 1.4 (0.8-1.1) Medications Current Medications Fentanyl Citrate (Fentanyl 2ml Vial) 50 mcg 1X ONCE IV Last administered on at 23:01; Start 08/21/18 at 22:00; Stop 08/21/18 at 22:02; Status DC Fentanyl Citrate (Fentanyl 2ml Vial) 50 mcg 1X ONCE IV Last administered on at 00:15; Start 08/22/18 at 00:00; Stop 08/22/18 at 00:01; Status DC Ondansetron HCl (Zofran) 4 mg PRN Q8HRS PRN IV NAUSEA/VOMITING; Start 08/22/18 at 00:30; Stop 08/23/18 at 00:29; Status DC Morphine Sulfate (Morphine Sulfate) 4 mg PRN Q2HR PRN IV PAIN Last administered on 08/22/18at 22:50; Start 08/22/18 at 00:30; Stop 08/23/18 at 00:29 ; Status DC Morphine Sulfate 5 mg/Ketorolac Tromethamine 30 mg/Ropivacaine 60 ml/ Epinephrine HCl 0.5 mg/Sodium Chloride 100 ml @ 100 mls/hr 1X ONCE INT ART Last administered on 08/23/18at 09:33; Start 08/23/18 at 06:00; Stop 08/23/18 at 06:59; Status DC Labetalol HCl (Normodyne Iv Push) 20 mg PRN Q2HR PRN IVP HYPERTENSION, SEE COMMENTS; Start 08/22/18 at 11:45 Oxycodone/ Acetaminophen (Percocet 5/325) 1 tab PRN Q4HRS PRN PO PAIN Last administered on 08/23/18at 03:13; Start 08/22/18 at 11:45 Ketorolac Tromethamine (Toradol 15mg Vial) 15 mg 1X ONCE IV Last administered on 08/22/18at 12:06; Start 08/22/18 at 11:45; Stop 08/22/18 at 11:51; Status DC Sodium Chloride 1,000 ml @ 100 mls/hr 1X ONCE IV Last administered on at 12:00; Start 08/22/18 at 12:00; Stop 08/22/18 at 21:59; Status DC Vitamin D (Vitamin D3) 5,000 unit DAILY PO ; Start 08/23/18 at 09:00 Prochlorperazine Edisylate (Compazine) 5 mg PACU PRN PRN IV NAUSEA, MRX1; Start 08/23/18 at 07:00; Stop 08/24/18 at 06:59 Hydromorphone HCl (Dilaudid) 0.5 mg PRN Q10MIN PRN IV SEV PAIN, Second choice; Start 08/23/18 at 07:00; Stop 08/24/18 at 06:59 Lidocaine HCl (Xylocaine-Mpf 1% 2ml Vial) 2 ml PRN 1X PRN ID IV START; Start at 07:00; Stop 08/24/18 at 06:59 Ringer's Solution 1,000 ml @ 30 mls/hr Q24H IV Last administered on 08/23/18at 11:48; Start 08/23/18 at 07:00; Stop 08/23/18 at 18:59 Morphine Sulfate (Morphine Sulfate) 1 mg PRN Q10MIN PRN IV SEVERE PAIN Last administered on 08/23/18at 11:34; Start 08/23/18 at 07:00; Stop 08/24/18 at 06:59 Fentanyl Citrate (Fentanyl 2ml Vial) 50 mcg PRN Q5MIN PRN IV MODERATE TO SEVERE PAIN Last administered on 08/23/18at 11:12; Start 08/23/18 at 07:00; Stop 08/24/18 at 06:59 Fentanyl Citrate (Fentanyl 2ml Vial) 25 mcg PRN Q5MIN PRN IV MILD PAIN; Start 08/23/18 at 07:00; Stop 08/24/18 at 06:59 Ondansetron HCl (Zofran) 4 mg PRN Q6HRS PRN IV NAUSEA/VOMITING; Start 08/23/18 at 07:00; Stop 08/24/18 at 06:59 Lidocaine HCl (Glydo (Lidocaine) Jelly) 1 rachelle 1X ONCE MM Last administered on 08/22/18at 14:47; Start 08/22/18 at 14:30; Stop 08/22/18 at 14:31; Status DC Cefazolin Sodium 1 gm/Dextrose 50 ml @ 100 mls/hr 1X ONCE IV ; Start 08/22/18 at 19:30; Stop 08/22/18 at 19:59; Status UNV Cefazolin Sodium 3 gm/Dextrose 100 ml @ 200 mls/hr 1X PREOP PRN IV PER PROTOCOL Last administered on 08/23/18at 09:11; Start 08/22/18 at 19:45 Dexamethasone Sodium Phosphate (Decadron) 20 mg STK-MED ONCE .ROUTE ; Start at 07:27; Stop 08/23/18 at 07:29; Status DC Ondansetron HCl (Zofran) 4 mg STK-MED ONCE .ROUTE ; Start 08/23/18 at 07:27; Stop 08/23/18 at 07:29; Status DC Lidocaine HCl (Lidocaine Pf 2% Vial) 5 ml STK-MED ONCE .ROUTE ; Start 08/23/18 at 07:27; Stop 08/23/18 at 07:30; Status DC Propofol 20 ml @ As Directed STK-MED ONCE IV ; Start 08/23/18 at 07:28; Stop at 07:30; Status DC Fentanyl Citrate (Fentanyl 2ml Vial) 100 mcg STK-MED ONCE .ROUTE ; Start at 07:56; Stop 08/23/18 at 07:58; Status DC Midazolam HCl (Versed) 2 mg STK-MED ONCE .ROUTE ; Start 08/23/18 at 07:56; Stop 08/23/18 at 07:58; Status DC Rocuronium [place] (Zemuron) 50 mg STK-MED ONCE .ROUTE ; Start 08/23/18 at 08:56 ; Stop 08/23/18 at 08:58; Status DC Fentanyl Citrate (Fentanyl 2ml Vial) 100 mcg STK-MED ONCE .ROUTE ; Start at 09:18; Stop 08/23/18 at 09:20; Status DC Neostigmine Methylsulfate (Bloxiverz) 10 mg STK-MED ONCE .ROUTE ; Start at 10:01; Stop 08/23/18 at 10:03; Status DC Glycopyrrolate (Robinul) 1 mg STK-MED ONCE .ROUTE ; Start 08/23/18 at 10:01; Stop 08/23/18 at 10:03; Status DC Sevoflurane (Ultane) 60 ml STK-MED ONCE IH ; Start 08/23/18 at 10:05; Stop 08/23 at 10:07; Status DC Cefazolin Sodium 3 gm/Dextrose 100 ml @ 200 mls/hr Q6H IV ; Start 08/23/18 at 15:00; Stop 08/24/18 at 03:29 Warfarin Sodium (Coumadin Per Pharmacy) 1 each PRN DAILY PRN MC SEE COMMENTS; Start 08/23/18 at 10:45 Warfarin Sodium (Coumadin) 5 mg 1X ONCE PO ; Start 08/23/18 at 17:00; Stop at 17:01 Morphine Sulfate (Morphine Sulfate) 4 mg STK-MED ONCE .ROUTE ; Start 08/23/18 at 11:33; Stop 08/23/18 at 11:35; Status DC Vitals/I & O Vital Sign - Last 24 Hours 08/22/18 08/22/18 08/22/18 08/22/18 14:54 15:00 17:01 19:14 Temp 97.8 97.8 Pulse 95 Resp 18 B/P (MAP) 151/58 (89) Pulse Ox 95 96 96 96 O2 Delivery Room Air Room Air Room Air Room Air 08/22/18 08/22/18 08/22/18 08/22/18 19:25 20:53 22:50 23:15 Temp 98.6 98.5 98.6 98.5 Pulse 89 92 Resp 20 18 B/P (MAP) 153/63 (93) 134/89 (104) Pulse Ox 96 96 95 O2 Delivery Room Air Room Air Room Air Room Air 08/22/18 08/23/18 08/23/18 08/23/18 23:20 03:13 03:15 04:13 Temp 98.2 98.2 Pulse 92 Resp 18 B/P (MAP) 133/70 (91) Pulse Ox 95 95 94 94 O2 Delivery Room Air Room Air Room Air Room Air 08/23/18 08/23/18 08/23/18 08/23/18 07:00 08:20 10:22 10:30 Temp 98.4 99.0 98 98.4 99.0 98.0 Pulse 95 90 90 Resp 18 28 16 B/P (MAP) 152/65 (94) 165/69 102/76 Pulse Ox 96 100 O2 Delivery Room Air Room Air Simple Mask Mask O2 Flow Rate 8 8 08/23/18 08/23/18 08/23/18 08/23/18 10:37 10:55 10:57 11:07 Temp 98.0 98.0 98.0 98.0 Pulse 98 94 80 Resp 20 20 18 18 B/P (MAP) 166/70 155/64 120/86 Pulse Ox 100 92 96 O2 Delivery Simple Mask Room Air Nasal Cannula O2 Flow Rate 8 2 08/23/18 08/23/18 08/23/18 08/23/18 11:12 11:22 11:34 11:37 Temp 98.0 98.0 98.0 98.0 Pulse 82 82 Resp 16 18 17 18 B/P (MAP) 135/43 133/41 Pulse Ox 96 95 95 95 O2 Delivery Nasal Cannula Nasal Cannula Nasal Cannula Nasal Cannula O2 Flow Rate 2.0 2.0 2.0 2.0 08/23/18 08/23/18 11:52 11:54 Temp 99.3 99.3 Pulse 80 Resp 18 18 B/P (MAP) 150/67 Pulse Ox 95 95 O2 Delivery Nasal Cannula Nasal Cannula O2 Flow Rate 2.0 2.0 Intake and Output 08/22/18 08/22/18 08/23/18 15:01 23:01 07:01 Intake Total 960 ml Output Total 550 ml Balance 410 ml JANAE OLIVARES MD Aug 23, 2018 13:12
[2018-08-23] MEDS: CHOLECALCIFEROL (VITAMIN D3) 5,000 UNIT CAPSULE PO SCH (13:42)
[2018-08-23] MEDS ORDERED: WARFARIN 5 MG TABLET. PO ONE (17:00)
[2018-08-23] MEDS: ENOXAPARIN 40 MG/0.4 ML SYRINGE. SQ SCH (21:58)
--- NOTE | 2018-08-24 01:59 | NUR ---
RN removed tegaderm and gauze from the left hip incision and the left thigh incision due to being saturated and reinforced with ABD pads and medipore tape. Will continue to monitor.
[2018-08-24] MEDS: oxyCODONE/APAP 5/325 1 TAB TABLET PO PRN (02:03)
[2018-08-24 03:00] VITALS: BP 134/50
[2018-08-24] MEDS: ceFAZolin SODIUM 3 GM in IV DEXTROSE 5% 100ML 100 ML IV SCH (03:08)
[2018-08-24 07:00] VITALS: BP 149/61
--- NOTE | 2018-08-24 09:07 | PDOC ---
ORTHO PROGRESS NOTES Subjective pain tolerable at rest. Asks for stronger pain med, no other complaints Vitals Vital Signs Date Time Temp Pulse Resp B/P (MAP) Pulse Ox O2 Delivery O2 Flow Rate FiO2 08/24/18 07:00 97.9 74 149/61 (90) 97 Room Air 97.9 08/23/18 23:00 18 08/23/18 13:43 2.0 Labs Laboratory Tests Test 08/23/18 11:30 Prothrombin Time 17.1 SEC (11.7-14.0) Prothromb Time International Ratio 1.4 (0.8-1.1) Laboratory Tests Test 08/23/18 11:30 Prothrombin Time 17.1 SEC (11.7-14.0) Prothromb Time International Ratio 1.4 (0.8-1.1) Notes percocet 7.5 PT/OT TTWB ZARINA CHAPMAN II, MD Aug 24, 2018 09:07
[2018-08-24] MEDS: CHOLECALCIFEROL (VITAMIN D3) 5,000 UNIT CAPSULE PO SCH (09:10)
[2018-08-24] MEDS: oxyCODONE/APAP 7.5/325 1 TAB TABLET PO PRN ×4 (09:17→21:47)
--- NOTE | 2018-08-24 09:50 | PDOC ---
PROGRESS NOTES Chief Complaint Chief Complaint fall on ice outside restaurant acute pain to hip left hip fracture. morbid obesity, BMI 40 History of Present Illness History of Present Illness s/p surg pain is marked with any movement no event he cannot transfer well, having severe pain with the bedpan Vitals Vitals Vital Signs Date Time Temp Pulse Resp B/P (MAP) Pulse Ox O2 Delivery O2 Flow Rate FiO2 08/24/18 09:17 Room Air 08/24/18 07:00 97.9 74 149/61 (90) 97 97.9 08/23/18 23:00 18 08/23/18 13:43 2.0 Physical Exam General: Alert, Oriented X3, Cooperative, No acute distress Heart: Regular rate, Normal S1 Lungs: Clear Abdomen: Normal bowel sounds, Soft, No tenderness Extremities: No edema, Normal pulses Skin: No rashes Labs LABS Laboratory Tests Test 08/23/18 11:30 Prothrombin Time 17.1 SEC (11.7-14.0) Prothromb Time International Ratio 1.4 (0.8-1.1) Review of Systems Review of Systems pain no n.v.d Assessment and Plan Assessmemt and Plan Problems Medical Problems: (1) Hip fracture Status: Acute Comment Review of Relevant I have reviewed the following items ham (where applicable) has been applied. Labs Laboratory Tests Test 08/23/18 11:30 Prothrombin Time 17.1 SEC (11.7-14.0) Prothromb Time International Ratio 1.4 (0.8-1.1) Laboratory Tests Test 08/23/18 11:30 Prothrombin Time 17.1 SEC (11.7-14.0) Prothromb Time International Ratio 1.4 (0.8-1.1) Medications Current Medications Fentanyl Citrate (Fentanyl 2ml Vial) 50 mcg 1X ONCE IV Last administered on at 23:01; Start 08/21/18 at 22:00; Stop 08/21/18 at 22:02; Status DC Fentanyl Citrate (Fentanyl 2ml Vial) 50 mcg 1X ONCE IV Last administered on at 00:15; Start 08/22/18 at 00:00; Stop 08/22/18 at 00:01; Status DC Ondansetron HCl (Zofran) 4 mg PRN Q8HRS PRN IV NAUSEA/VOMITING; Start 08/22/18 at 00:30; Stop 08/23/18 at 00:29; Status DC Morphine Sulfate (Morphine Sulfate) 4 mg PRN Q2HR PRN IV PAIN Last administered on 08/22/18at 22:50; Start 08/22/18 at 00:30; Stop 08/23/18 at 00:29 ; Status DC Morphine Sulfate 5 mg/Ketorolac Tromethamine 30 mg/Ropivacaine 60 ml/ Epinephrine HCl 0.5 mg/Sodium Chloride 100 ml @ 100 mls/hr 1X ONCE INT ART Last administered on 08/23/18at 09:33; Start 08/23/18 at 06:00; Stop 08/23/18 at 06:59; Status DC Labetalol HCl (Normodyne Iv Push) 20 mg PRN Q2HR PRN IVP HYPERTENSION, SEE COMMENTS; Start 08/22/18 at 11:45 Oxycodone/ Acetaminophen (Percocet 5/325) 1 tab PRN Q4HRS PRN PO PAIN Last administered on 08/24/18at 02:03; Start 08/22/18 at 11:45; Stop 08/24/18 at 09:04 ; Status DC Ketorolac Tromethamine (Toradol 15mg Vial) 15 mg 1X ONCE IV Last administered on 08/22/18at 12:06; Start 08/22/18 at 11:45; Stop 08/22/18 at 11:51; Status DC Sodium Chloride 1,000 ml @ 100 mls/hr 1X ONCE IV Last administered on at 12:00; Start 08/22/18 at 12:00; Stop 08/22/18 at 21:59; Status DC Vitamin D (Vitamin D3) 5,000 unit DAILY PO Last administered on 08/24/18at 09:10 ; Start 08/23/18 at 09:00 Prochlorperazine Edisylate (Compazine) 5 mg PACU PRN PRN IV NAUSEA, MRX1; Start 08/23/18 at 07:00; Stop 08/24/18 at 06:59; Status DC Hydromorphone HCl (Dilaudid) 0.5 mg PRN Q10MIN PRN IV SEV PAIN, Second choice; Start 08/23/18 at 07:00; Stop 08/24/18 at 06:59; Status DC Lidocaine HCl (Xylocaine-Mpf 1% 2ml Vial) 2 ml PRN 1X PRN ID IV START; Start at 07:00; Stop 08/24/18 at 06:59; Status DC Ringer's Solution 1,000 ml @ 30 mls/hr Q24H IV Last administered on 08/23/18at 11:48; Start 08/23/18 at 07:00; Stop 08/23/18 at 18:59; Status DC Morphine Sulfate (Morphine Sulfate) 1 mg PRN Q10MIN PRN IV SEVERE PAIN Last administered on 08/23/18at 11:34; Start 08/23/18 at 07:00; Stop 08/24/18 at 06:59 ; Status DC Fentanyl Citrate (Fentanyl 2ml Vial) 50 mcg PRN Q5MIN PRN IV MODERATE TO SEVERE PAIN Last administered on 08/23/18at 11:12; Start 08/23/18 at 07:00; Stop 08/24/18 at 06:59; Status DC Fentanyl Citrate (Fentanyl 2ml Vial) 25 mcg PRN Q5MIN PRN IV MILD PAIN; Start 08/23/18 at 07:00; Stop 08/24/18 at 06:59; Status DC Ondansetron HCl (Zofran) 4 mg PRN Q6HRS PRN IV NAUSEA/VOMITING; Start 08/23/18 at 07:00; Stop 08/24/18 at 06:59; Status DC Lidocaine HCl (Glydo (Lidocaine) Jelly) 1 rachelle 1X ONCE MM Last administered on 08/22/18at 14:47; Start 08/22/18 at 14:30; Stop 08/22/18 at 14:31; Status DC Cefazolin Sodium 1 gm/Dextrose 50 ml @ 100 mls/hr 1X ONCE IV ; Start 08/22/18 at 19:30; Stop 08/22/18 at 19:59; Status UNV Cefazolin Sodium 3 gm/Dextrose 100 ml @ 200 mls/hr 1X PREOP PRN IV PER PROTOCOL Last administered on 08/23/18at 09:11; Start 08/22/18 at 19:45 Dexamethasone Sodium Phosphate (Decadron) 20 mg STK-MED ONCE .ROUTE ; Start at 07:27; Stop 08/23/18 at 07:29; Status DC Ondansetron HCl (Zofran) 4 mg STK-MED ONCE .ROUTE ; Start 08/23/18 at 07:27; Stop 08/23/18 at 07:29; Status DC Lidocaine HCl (Lidocaine Pf 2% Vial) 5 ml STK-MED ONCE .ROUTE ; Start 08/23/18 at 07:27; Stop 08/23/18 at 07:30; Status DC Propofol 20 ml @ As Directed STK-MED ONCE IV ; Start 08/23/18 at 07:28; Stop at 07:30; Status DC Fentanyl Citrate (Fentanyl 2ml Vial) 100 mcg STK-MED ONCE .ROUTE ; Start at 07:56; Stop 08/23/18 at 07:58; Status DC Midazolam HCl (Versed) 2 mg STK-MED ONCE .ROUTE ; Start 08/23/18 at 07:56; Stop 08/23/18 at 07:58; Status DC Rocuronium [place] (Zemuron) 50 mg STK-MED ONCE .ROUTE ; Start 08/23/18 at 08:56 ; Stop 08/23/18 at 08:58; Status DC Fentanyl Citrate (Fentanyl 2ml Vial) 100 mcg STK-MED ONCE .ROUTE ; Start at 09:18; Stop 08/23/18 at 09:20; Status DC Neostigmine Methylsulfate (Bloxiverz) 10 mg STK-MED ONCE .ROUTE ; Start at 10:01; Stop 08/23/18 at 10:03; Status DC Glycopyrrolate (Robinul) 1 mg STK-MED ONCE .ROUTE ; Start 08/23/18 at 10:01; Stop 08/23/18 at 10:03; Status DC Sevoflurane (Ultane) 60 ml STK-MED ONCE IH ; Start 08/23/18 at 10:05; Stop 08/23 at 10:07; Status DC Cefazolin Sodium 3 gm/Dextrose 100 ml @ 200 mls/hr Q6H IV Last administered on 08/24/18at 03:08; Start 08/23/18 at 15:00; Stop 08/24/18 at 03:29; Status DC Warfarin Sodium (Coumadin Per Pharmacy) 1 each PRN DAILY PRN MC SEE COMMENTS; Start 08/23/18 at 10:45 Warfarin Sodium (Coumadin) 5 mg 1X ONCE PO Last administered on 08/23/18at 17: 29; Start 08/23/18 at 17:00; Stop 08/23/18 at 17:01; Status DC Morphine Sulfate (Morphine Sulfate) 4 mg STK-MED ONCE .ROUTE ; Start 08/23/18 at 11:33; Stop 08/23/18 at 11:35; Status DC Enoxaparin Sodium (Lovenox Per Pharmacy Prophylaxis Dosing) 1 each PRN DAILY PRN MC SEE COMMENTS; Start 08/23/18 at 13:00; Stop 08/25/18 at 08:00 Enoxaparin Sodium (Lovenox 40mg Syringe) 40 mg QHS SQ Last administered on 08/23at 21:58; Start 08/23/18 at 21:00; Stop 08/25/18 at 08:00 Oxycodone/ Acetaminophen (Percocet 7.5/ 325) 1 tab PRN Q3HRS PRN PO PAIN Last administered on 08/24/18at 09:17; Start 08/24/18 at 09:15 Vitals/I & O Vital Sign - Last 24 Hours 08/23/18 08/23/18 08/23/18 08/23/18 10:22 10:30 10:37 10:55 Temp 98 98.0 98.0 98.0 Pulse 90 98 94 Resp 16 20 20 B/P (MAP) 102/76 166/70 155/64 Pulse Ox 100 100 92 O2 Delivery Simple Mask Mask Simple Mask Room Air O2 Flow Rate 8 8 8 08/23/18 08/23/18 08/23/18 08/23/18 10:57 11:07 11:12 11:22 Temp 98.0 98.0 98.0 98.0 Pulse 80 82 Resp 18 18 16 18 B/P (MAP) 120/86 135/43 Pulse Ox 96 96 95 O2 Delivery Nasal Cannula Nasal Cannula Nasal Cannula O2 Flow Rate 2 2.0 2.0 08/23/18 08/23/18 08/23/18 08/23/18 11:34 11:37 11:52 11:54 Temp 98.0 99.3 98.0 99.3 Pulse 82 80 Resp 17 18 18 18 B/P (MAP) 133/41 150/67 Pulse Ox 95 95 95 95 O2 Delivery Nasal Cannula Nasal Cannula Nasal Cannula Nasal Cannula O2 Flow Rate 2.0 2.0 2.0 2.0 08/23/18 08/23/18 08/23/18 08/23/18 12:30 12:45 13:00 13:15 Pulse 87 85 84 84 Resp 18 18 18 18 B/P (MAP) 106/67 (80) 110/68 (82) 145/50 (81) 141/52 (81) Pulse Ox 92 93 93 O2 Delivery Room Air Room Air Room Air Room Air 08/23/18 08/23/18 08/23/18 08/23/18 13:30 13:43 14:00 14:30 Pulse 81 84 84 Resp 18 20 B/P (MAP) 134/62 (86) 127/59 (81) 137/64 (88) Pulse Ox 93 93 O2 Delivery Room Air Nasal Cannula Room Air Room Air O2 Flow Rate 2.0 08/23/18 08/23/18 08/23/18 08/23/18 15:30 16:30 17:29 18:29 Pulse 94 83 Resp 20 20 B/P (MAP) 128/64 (85) 116/68 (84) Pulse Ox 95 94 O2 Delivery Room Air Room Air Room Air 08/23/18 08/23/18 08/23/18 08/23/18 19:00 20:05 21:59 23:00 Temp 98.1 98.2 98.1 98.2 Pulse 79 75 Resp 18 18 B/P (MAP) 109/64 (79) 119/58 (78) Pulse Ox 94 94 O2 Delivery Room Air Room Air Room Air Room Air 08/24/18 08/24/18 08/24/18 08/24/18 02:03 03:00 03:03 07:00 Temp 97.9 97.9 97.9 97.9 Pulse 81 74 B/P (MAP) 134/50 (78) 149/61 (90) Pulse Ox 97 O2 Delivery Room Air Room Air Room Air Room Air 08/24/18 08/24/18 08:00 09:17 O2 Delivery Room Air Room Air Intake and Output 08/23/18 08/23/18 08/24/18 15:01 23:01 07:01 Intake Total 1340 ml 160 ml Output Total 300 ml 500 ml 1400 ml Balance 1040 ml -340 ml -1400 ml JANAE OLIVARES MD Aug 24, 2018 09:50
[2018-08-24 10:22] LABS: PROTHROMBIN TIME PATIENT 17.7 SEC (11.7-14.0)
--- NOTE | 2018-08-24 11:06 | NUR ---
Pharmacy Warfarin Dosing Note S:Pharmacy consulted to assist with anticoagulation therapy started with target INR: 1.6 - 2.5 O:ZELALEM PRATER is a 63 year old M with Hip Fracture LABS: Last INR: 1.5 Last HGB: Last HCT: Last PLT: 128 Last dose of 5 mg given on 08/23/18 at 1700 Previous Regimen: Vitamin K given: Drug Interaction Changes: Ongoing Drug Interactions: A:INR of 1.5 is below desired range. Target range for this patient is: 1.6 - 2.5 P: Warfarin dose: 5 mg Today at 1600 Bridge Therapy: Enoxaparin 40 mg Next INR due IN AM Pharmacy anticoagulation service will continue to follow. SASHA SÁNCHEZ RPH, 08/24/18 2500
[2018-08-24 11:12] VITALS: BP 117/52
[2018-08-24 15:00] VITALS: BP 159/76
[2018-08-24] MEDS ORDERED: WARFARIN 5 MG TABLET. PO ONE (16:00)
[2018-08-24 19:00] VITALS: BP 123/63
[2018-08-24] MEDS: ENOXAPARIN 40 MG/0.4 ML SYRINGE. SQ SCH (21:43)
[2018-08-24 23:00] VITALS: BP 107/65
[2018-08-25 03:00] VITALS: BP 113/54
[2018-08-25 05:28] LABS: PROTHROMBIN TIME PATIENT 17.4 SEC (11.7-14.0)
[2018-08-25 07:00] VITALS: BP 173/71
[2018-08-25] MEDS: CHOLECALCIFEROL (VITAMIN D3) 5,000 UNIT CAPSULE PO SCH (09:22)
[2018-08-25] MEDS: oxyCODONE/APAP 7.5/325 1 TAB TABLET PO PRN ×4 (09:22→22:20)
--- NOTE | 2018-08-25 10:10 | PDOC ---
ORTHO PROGRESS NOTES Subjective Patient states feeling ok but painful. Post-op Day: 2 Procedure Left Hip IM Nail Vitals Vital Signs Date Time Temp Pulse Resp B/P (MAP) Pulse Ox O2 Delivery O2 Flow Rate FiO2 08/25/18 09:22 Room Air 08/25/18 07:00 97.8 82 18 173/71 (105) 96 97.8 Labs Laboratory Tests Test 08/23/18 11:30 08/24/18 09:25 08/25/18 04:30 Prothrombin Time 17.1 SEC (11.7-14.0) 17.7 SEC (11.7-14.0) 17.4 SEC (11.7-14.0) Prothromb Time International Ratio 1.4 (0.8-1.1) 1.5 (0.8-1.1) 1.5 (0.8-1.1) Laboratory Tests Test 08/25/18 04:30 Prothrombin Time 17.4 SEC (11.7-14.0) Prothromb Time International Ratio 1.5 (0.8-1.1) Assessment and Plan POD# 2 S/P L Hip IM Nail dressing dry and intact calf soft and nontender motor and sensory intact distally. continue PT ALDO GONG APRN Aug 25, 2018 10:10
[2018-08-25 11:00] VITALS: BP 109/62
--- NOTE | 2018-08-25 11:18 | PDOC ---
PROGRESS NOTES Chief Complaint Chief Complaint fall on ice outside restaurant acute pain to hip left hip fracture. morbid obesity, BMI 40 POD# 2 S/P L Hip IM Nail History of Present Illness History of Present Illness s/p surg pain is marked with any movement no event he cannot transfer well, having severe pain with the bedpan Vitals Vitals Vital Signs Date Time Temp Pulse Resp B/P (MAP) Pulse Ox O2 Delivery O2 Flow Rate FiO2 08/25/18 10:30 Room Air 08/25/18 07:00 97.8 82 18 173/71 (105) 96 97.8 Physical Exam General: Alert, Oriented X3, Cooperative, No acute distress Heart: Regular rate, Normal S1 Lungs: Clear Abdomen: Normal bowel sounds, Soft, No tenderness Extremities: No edema, Normal pulses Skin: No rashes Labs LABS Laboratory Tests Test 08/25/18 04:30 Prothrombin Time 17.4 SEC (11.7-14.0) Prothromb Time International Ratio 1.5 (0.8-1.1) Assessment and Plan Assessmemt and Plan Problems Medical Problems: (1) Hip fracture Status: Acute Comment Review of Relevant I have reviewed the following items ham (where applicable) has been applied. Labs Laboratory Tests Test 08/23/18 11:30 08/24/18 09:25 08/25/18 04:30 Prothrombin Time 17.1 SEC (11.7-14.0) 17.7 SEC (11.7-14.0) 17.4 SEC (11.7-14.0) Prothromb Time International Ratio 1.4 (0.8-1.1) 1.5 (0.8-1.1) 1.5 (0.8-1.1) Laboratory Tests Test 08/25/18 04:30 Prothrombin Time 17.4 SEC (11.7-14.0) Prothromb Time International Ratio 1.5 (0.8-1.1) Medications Current Medications Fentanyl Citrate (Fentanyl 2ml Vial) 50 mcg 1X ONCE IV Last administered on at 23:01; Start 08/21/18 at 22:00; Stop 08/21/18 at 22:02; Status DC Fentanyl Citrate (Fentanyl 2ml Vial) 50 mcg 1X ONCE IV Last administered on at 00:15; Start 08/22/18 at 00:00; Stop 08/22/18 at 00:01; Status DC Ondansetron HCl (Zofran) 4 mg PRN Q8HRS PRN IV NAUSEA/VOMITING; Start 08/22/18 at 00:30; Stop 08/23/18 at 00:29; Status DC Morphine Sulfate (Morphine Sulfate) 4 mg PRN Q2HR PRN IV PAIN Last administered on 08/22/18at 22:50; Start 08/22/18 at 00:30; Stop 08/23/18 at 00:29 ; Status DC Morphine Sulfate 5 mg/Ketorolac Tromethamine 30 mg/Ropivacaine 60 ml/ Epinephrine HCl 0.5 mg/Sodium Chloride 100 ml @ 100 mls/hr 1X ONCE INT ART Last administered on 08/23/18at 09:33; Start 08/23/18 at 06:00; Stop 08/23/18 at 06:59; Status DC Labetalol HCl (Normodyne Iv Push) 20 mg PRN Q2HR PRN IVP HYPERTENSION, SEE COMMENTS; Start 08/22/18 at 11:45 Oxycodone/ Acetaminophen (Percocet 5/325) 1 tab PRN Q4HRS PRN PO PAIN Last administered on 08/24/18at 02:03; Start 08/22/18 at 11:45; Stop 08/24/18 at 09:04 ; Status DC Ketorolac Tromethamine (Toradol 15mg Vial) 15 mg 1X ONCE IV Last administered on 08/22/18at 12:06; Start 08/22/18 at 11:45; Stop 08/22/18 at 11:51; Status DC Sodium Chloride 1,000 ml @ 100 mls/hr 1X ONCE IV Last administered on at 12:00; Start 08/22/18 at 12:00; Stop 08/22/18 at 21:59; Status DC Vitamin D (Vitamin D3) 5,000 unit DAILY PO Last administered on 08/25/18at 09:22 ; Start 08/23/18 at 09:00 Prochlorperazine Edisylate (Compazine) 5 mg PACU PRN PRN IV NAUSEA, MRX1; Start 08/23/18 at 07:00; Stop 08/24/18 at 06:59; Status DC Hydromorphone HCl (Dilaudid) 0.5 mg PRN Q10MIN PRN IV SEV PAIN, Second choice; Start 08/23/18 at 07:00; Stop 08/24/18 at 06:59; Status DC Lidocaine HCl (Xylocaine-Mpf 1% 2ml Vial) 2 ml PRN 1X PRN ID IV START; Start at 07:00; Stop 08/24/18 at 06:59; Status DC Ringer's Solution 1,000 ml @ 30 mls/hr Q24H IV Last administered on 08/23/18at 11:48; Start 08/23/18 at 07:00; Stop 08/23/18 at 18:59; Status DC Morphine Sulfate (Morphine Sulfate) 1 mg PRN Q10MIN PRN IV SEVERE PAIN Last administered on 08/23/18at 11:34; Start 08/23/18 at 07:00; Stop 08/24/18 at 06:59 ; Status DC Fentanyl Citrate (Fentanyl 2ml Vial) 50 mcg PRN Q5MIN PRN IV MODERATE TO SEVERE PAIN Last administered on 08/23/18at 11:12; Start 08/23/18 at 07:00; Stop 08/24/18 at 06:59; Status DC Fentanyl Citrate (Fentanyl 2ml Vial) 25 mcg PRN Q5MIN PRN IV MILD PAIN; Start 08/23/18 at 07:00; Stop 08/24/18 at 06:59; Status DC Ondansetron HCl (Zofran) 4 mg PRN Q6HRS PRN IV NAUSEA/VOMITING; Start 08/23/18 at 07:00; Stop 08/24/18 at 06:59; Status DC Lidocaine HCl (Glydo (Lidocaine) Jelly) 1 rachelle 1X ONCE MM Last administered on 08/22/18at 14:47; Start 08/22/18 at 14:30; Stop 08/22/18 at 14:31; Status DC Cefazolin Sodium 1 gm/Dextrose 50 ml @ 100 mls/hr 1X ONCE IV ; Start 08/22/18 at 19:30; Stop 08/22/18 at 19:59; Status UNV Cefazolin Sodium 3 gm/Dextrose 100 ml @ 200 mls/hr 1X PREOP PRN IV PER PROTOCOL Last administered on 08/23/18at 09:11; Start 08/22/18 at 19:45 Dexamethasone Sodium Phosphate (Decadron) 20 mg STK-MED ONCE .ROUTE ; Start at 07:27; Stop 08/23/18 at 07:29; Status DC Ondansetron HCl (Zofran) 4 mg STK-MED ONCE .ROUTE ; Start 08/23/18 at 07:27; Stop 08/23/18 at 07:29; Status DC Lidocaine HCl (Lidocaine Pf 2% Vial) 5 ml STK-MED ONCE .ROUTE ; Start 08/23/18 at 07:27; Stop 08/23/18 at 07:30; Status DC Propofol 20 ml @ As Directed STK-MED ONCE IV ; Start 08/23/18 at 07:28; Stop at 07:30; Status DC Fentanyl Citrate (Fentanyl 2ml Vial) 100 mcg STK-MED ONCE .ROUTE ; Start at 07:56; Stop 08/23/18 at 07:58; Status DC Midazolam HCl (Versed) 2 mg STK-MED ONCE .ROUTE ; Start 08/23/18 at 07:56; Stop 08/23/18 at 07:58; Status DC Rocuronium [place] (Zemuron) 50 mg STK-MED ONCE .ROUTE ; Start 08/23/18 at 08:56 ; Stop 08/23/18 at 08:58; Status DC Fentanyl Citrate (Fentanyl 2ml Vial) 100 mcg STK-MED ONCE .ROUTE ; Start at 09:18; Stop 08/23/18 at 09:20; Status DC Neostigmine Methylsulfate (Bloxiverz) 10 mg STK-MED ONCE .ROUTE ; Start at 10:01; Stop 08/23/18 at 10:03; Status DC Glycopyrrolate (Robinul) 1 mg STK-MED ONCE .ROUTE ; Start 08/23/18 at 10:01; Stop 08/23/18 at 10:03; Status DC Sevoflurane (Ultane) 60 ml STK-MED ONCE IH ; Start 08/23/18 at 10:05; Stop 08/23 at 10:07; Status DC Cefazolin Sodium 3 gm/Dextrose 100 ml @ 200 mls/hr Q6H IV Last administered on 08/24/18at 03:08; Start 08/23/18 at 15:00; Stop 08/24/18 at 03:29; Status DC Warfarin Sodium (Coumadin Per Pharmacy) 1 each PRN DAILY PRN MC SEE COMMENTS Last administered on 08/24/18at 11:05; Start 08/23/18 at 10:45 Warfarin Sodium (Coumadin) 5 mg 1X ONCE PO Last administered on 08/23/18at 17: 29; Start 08/23/18 at 17:00; Stop 08/23/18 at 17:01; Status DC Morphine Sulfate (Morphine Sulfate) 4 mg STK-MED ONCE .ROUTE ; Start 08/23/18 at 11:33; Stop 08/23/18 at 11:35; Status DC Enoxaparin Sodium (Lovenox Per Pharmacy Prophylaxis Dosing) 1 each PRN DAILY PRN MC SEE COMMENTS; Start 08/23/18 at 13:00; Stop 08/25/18 at 08:00; Status DC Enoxaparin Sodium (Lovenox 40mg Syringe) 40 mg QHS SQ Last administered on 08/24at 21:43; Start 08/23/18 at 21:00; Stop 08/25/18 at 08:00; Status DC Oxycodone/ Acetaminophen (Percocet 7.5/ 325) 1 tab PRN Q3HRS PRN PO PAIN Last administered on 08/25/18at 09:22; Start 08/24/18 at 09:15 Warfarin Sodium (Coumadin) 5 mg 1X WARF ONCE PO Last administered on at 17:32; Start 08/24/18 at 16:00; Stop 08/24/18 at 16:01; Status DC Vitals/I & O Vital Sign - Last 24 Hours 08/24/18 08/24/18 08/24/18 08/24/18 12:24 15:00 17:31 19:00 Temp 98.0 97.9 98.0 97.9 Pulse 76 72 Resp 20 18 B/P (MAP) 159/76 (103) 123/63 (83) Pulse Ox 95 97 O2 Delivery Room Air Room Air Room Air Room Air 08/24/18 08/24/18 08/24/18 08/24/18 20:00 21:47 22:47 23:00 Temp 98.3 98.3 Pulse 87 Resp 20 20 18 B/P (MAP) 107/65 (79) Pulse Ox 97 96 96 O2 Delivery Room Air Room Air Room Air 08/25/18 08/25/18 08/25/18 08/25/18 03:00 07:00 08:00 09:22 Temp 97.9 97.8 97.9 97.8 Pulse 76 82 Resp 18 18 B/P (MAP) 113/54 (73) 173/71 (105) Pulse Ox 95 96 O2 Delivery Room Air Room Air Room Air Room Air 08/25/18 10:30 O2 Delivery Room Air Intake and Output 08/24/18 08/24/18 08/25/18 15:01 23:01 07:01 Intake Total 940 ml 2300 ml 900 ml Output Total 900 ml 2700 ml Balance 940 ml 1400 ml -1800 ml IRMA WOOD MD Aug 25, 2018 11:18
--- NOTE | 2018-08-25 11:25 | NUR ---
SW following for discharge planning. Discussed with RN. SW met with pt to discuss rehab. Pt has Medicare part A, pt would like to go to [facility]. PT Edin aware and will make recommendation for acute rehab. SW awaiting PT/OT paperwork before faxing referral. Martha from [facility] aware of pt referral. SW will continue to follow.
--- NOTE | 2018-08-25 13:20 | NUR ---
Pharmacy Warfarin Dosing Note S:Pharmacy consulted to assist with anticoagulation therapy started with target INR: 1.6 - 2.5 O:ZELALEM PRATER is a 63 year old M with Hip Fracture LABS: Last INR: 1.5 Last HGB: 13.0 Last HCT: 38.5 Last PLT: 128 Last dose of 5 mg given on 08/24/18 at 1732 Previous Regimen: Vitamin K given: Drug Interaction Changes: Ongoing Drug Interactions: A:INR of 1.5 is below desired range. Target range for this patient is: 1.6 - 2.5 P: Warfarin dose: 4 mg Today at 1600 Bridge Therapy: None . Next INR due 08/26/17. Pharmacy anticoagulation service will continue to follow. ANALY CARO RPH, 08/25/18 0361
[2018-08-25 15:00] VITALS: BP 124/61
[2018-08-25] MEDS ORDERED: WARFARIN 4 MG TABLET. PO ONE (16:00)
[2018-08-25 19:00] VITALS: BP 140/54
[2018-08-25 23:00] VITALS: BP 129/51
[2018-08-26 03:00] VITALS: BP 131/63
[2018-08-26 04:06] LABS: BASO % 1 % (0-3); EOS # 0.1 x10^3/uL (0.0-0.7); EOS % 2 % (0-3); HEMATOCRIT 25.5 % (39.0-53.0); HEMOGLOBIN 8.4 g/dL (13.0-17.5); LYMPH # 0.7 x10^3/uL (1.0-4.8); LYMPH % 28 % (24-48); MEAN CORPUSCULAR HEMOGLOBIN 31 pg (25-35); MEAN CORPUSCULAR HGB CONC 33 g/dL (31-37); MEAN CORPUSCULAR VOLUME 94 fL (79-100); MONO # 0.4 x10^3/uL (0.0-1.1); MONO % 15 % (0-9); NEUT # 1.4 x10^3uL (1.8-7.7); NEUT % 54 % (31-73); PLATELET COUNT 86 x10^3/uL (140-400); RED BLOOD COUNT 2.72 x10^6/uL (4.30-5.70); RED CELL DISTRIBUTION WIDTH 15.2 % (11.5-14.5); WHITE BLOOD COUNT 2.5 x10^3/uL (4.0-11.0)
[2018-08-26 04:08] LABS: PROTHROMBIN TIME PATIENT 16.9 SEC (11.7-14.0)
[2018-08-26 04:20] LABS: ALBUMIN 2.2 g/dL (3.4-5.0); ALBUMIN/GLOBULIN RATIO 0.6 (1.0-1.7); CALCIUM 8.5 mg/dL (8.5-10.1); CREATININE 0.8 mg/dL (0.7-1.3); POTASSIUM 4.2 mmol/L (3.5-5.1); TOTAL BILIRUBIN 1.2 mg/dL (0.2-1.0); TOTAL PROTEIN 6.2 g/dL (6.4-8.2)
[2018-08-26] MEDS: oxyCODONE/APAP 7.5/325 1 TAB TABLET PO PRN ×3 (04:20→14:33)
[2018-08-26 07:00] VITALS: BP 101/48
[2018-08-26] MEDS: CHOLECALCIFEROL (VITAMIN D3) 5,000 UNIT CAPSULE PO SCH (08:53)
--- NOTE | 2018-08-26 10:37 | PDOC ---
PROGRESS NOTES Chief Complaint Chief Complaint fall on ice outside restaurant acute pain to hip left hip fracture. morbid obesity, BMI 40 POD# 3 S/P L Hip IM Nail History of Present Illness History of Present Illness s/p surg pain is marked with any movement no event he cannot transfer well, having severe pain with the bedpan Vitals Vitals Vital Signs Date Time Temp Pulse Resp B/P (MAP) Pulse Ox O2 Delivery O2 Flow Rate FiO2 08/26/18 08:53 Room Air 08/26/18 07:00 97.9 82 18 101/48 (65) 94 97.9 Physical Exam General: Alert, Oriented X3, Cooperative, No acute distress Heart: Regular rate, Normal S1 Lungs: Clear Abdomen: Normal bowel sounds, Soft, No tenderness Extremities: No cyanosis, No edema, Normal pulses Skin: No rashes Labs LABS Laboratory Tests Test 08/26/18 03:35 White Blood Count 2.5 x10^3/uL (4.0-11.0) Red Blood Count 2.72 x10^6/uL (4.30-5.70) Hemoglobin 8.4 g/dL (13.0-17.5) Hematocrit 25.5 % (39.0-53.0) Mean Corpuscular Volume 94 fL (79-100) Mean Corpuscular Hemoglobin 31 pg (25-35) Mean Corpuscular Hemoglobin Concent 33 g/dL (31-37) Red Cell Distribution Width 15.2 % (11.5-14.5) Platelet Count 86 x10^3/uL (140-400) Neutrophils (%) (Auto) 54 % (31-73) Lymphocytes (%) (Auto) 28 % (24-48) Monocytes (%) (Auto) 15 % (0-9) Eosinophils (%) (Auto) 2 % (0-3) Basophils (%) (Auto) 1 % (0-3) Neutrophils # (Auto) 1.4 x10^3uL (1.8-7.7) Lymphocytes # (Auto) 0.7 x10^3/uL (1.0-4.8) Monocytes # (Auto) 0.4 x10^3/uL (0.0-1.1) Eosinophils # (Auto) 0.1 x10^3/uL (0.0-0.7) Basophils # (Auto) 0.0 x10^3/uL (0.0-0.2) Prothrombin Time 16.9 SEC (11.7-14.0) Prothromb Time International Ratio 1.4 (0.8-1.1) Sodium Level 141 mmol/L (136-145) Potassium Level 4.2 mmol/L (3.5-5.1) Chloride Level 106 mmol/L (98-107) Carbon Dioxide Level 30 mmol/L (21-32) Anion Gap 5 (6-14) Blood Urea Nitrogen 15 mg/dL (8-26) Creatinine 0.8 mg/dL (0.7-1.3) Estimated GFR (Cockcroft-Gault) 97.0 BUN/Creatinine Ratio 19 (6-20) Glucose Level 152 mg/dL (70-99) Calcium Level 8.5 mg/dL (8.5-10.1) Total Bilirubin 1.2 mg/dL (0.2-1.0) Aspartate Amino Transf (AST/SGOT) 42 U/L (15-37) Alanine Aminotransferase (ALT/SGPT) 32 U/L (16-63) Alkaline Phosphatase 110 U/L (46-116) Total Protein 6.2 g/dL (6.4-8.2) Albumin 2.2 g/dL (3.4-5.0) Albumin/Globulin Ratio 0.6 (1.0-1.7) Assessment and Plan Assessmemt and Plan Problems Medical Problems: (1) Hip fracture Status: Acute Comment Review of Relevant I have reviewed the following items ham (where applicable) has been applied. Labs Laboratory Tests Test 08/25/18 04:30 08/26/18 03:35 Prothrombin Time 17.4 SEC (11.7-14.0) 16.9 SEC (11.7-14.0) Prothromb Time International Ratio 1.5 (0.8-1.1) 1.4 (0.8-1.1) White Blood Count 2.5 x10^3/uL (4.0-11.0) Red Blood Count 2.72 x10^6/uL (4.30-5.70) Hemoglobin 8.4 g/dL (13.0-17.5) Hematocrit 25.5 % (39.0-53.0) Mean Corpuscular Volume 94 fL (79-100) Mean Corpuscular Hemoglobin 31 pg (25-35) Mean Corpuscular Hemoglobin Concent 33 g/dL (31-37) Red Cell Distribution Width 15.2 % (11.5-14.5) Platelet Count 86 x10^3/uL (140-400) Neutrophils (%) (Auto) 54 % (31-73) Lymphocytes (%) (Auto) 28 % (24-48) Monocytes (%) (Auto) 15 % (0-9) Eosinophils (%) (Auto) 2 % (0-3) Basophils (%) (Auto) 1 % (0-3) Neutrophils # (Auto) 1.4 x10^3uL (1.8-7.7) Lymphocytes # (Auto) 0.7 x10^3/uL (1.0-4.8) Monocytes # (Auto) 0.4 x10^3/uL (0.0-1.1) Eosinophils # (Auto) 0.1 x10^3/uL (0.0-0.7) Basophils # (Auto) 0.0 x10^3/uL (0.0-0.2) Sodium Level 141 mmol/L (136-145) Potassium Level 4.2 mmol/L (3.5-5.1) Chloride Level 106 mmol/L (98-107) Carbon Dioxide Level 30 mmol/L (21-32) Anion Gap 5 (6-14) Blood Urea Nitrogen 15 mg/dL (8-26) Creatinine 0.8 mg/dL (0.7-1.3) Estimated GFR (Cockcroft-Gault) 97.0 BUN/Creatinine Ratio 19 (6-20) Glucose Level 152 mg/dL (70-99) Calcium Level 8.5 mg/dL (8.5-10.1) Total Bilirubin 1.2 mg/dL (0.2-1.0) Aspartate Amino Transf (AST/SGOT) 42 U/L (15-37) Alanine Aminotransferase (ALT/SGPT) 32 U/L (16-63) Alkaline Phosphatase 110 U/L (46-116) Total Protein 6.2 g/dL (6.4-8.2) Albumin 2.2 g/dL (3.4-5.0) Albumin/Globulin Ratio 0.6 (1.0-1.7) Laboratory Tests Test 08/26/18 03:35 White Blood Count 2.5 x10^3/uL (4.0-11.0) Red Blood Count 2.72 x10^6/uL (4.30-5.70) Hemoglobin 8.4 g/dL (13.0-17.5) Hematocrit 25.5 % (39.0-53.0) Mean Corpuscular Volume 94 fL (79-100) Mean Corpuscular Hemoglobin 31 pg (25-35) Mean Corpuscular Hemoglobin Concent 33 g/dL (31-37) Red Cell Distribution Width 15.2 % (11.5-14.5) Platelet Count 86 x10^3/uL (140-400) Neutrophils (%) (Auto) 54 % (31-73) Lymphocytes (%) (Auto) 28 % (24-48) Monocytes (%) (Auto) 15 % (0-9) Eosinophils (%) (Auto) 2 % (0-3) Basophils (%) (Auto) 1 % (0-3) Neutrophils # (Auto) 1.4 x10^3uL (1.8-7.7) Lymphocytes # (Auto) 0.7 x10^3/uL (1.0-4.8) Monocytes # (Auto) 0.4 x10^3/uL (0.0-1.1) Eosinophils # (Auto) 0.1 x10^3/uL (0.0-0.7) Basophils # (Auto) 0.0 x10^3/uL (0.0-0.2) Prothrombin Time 16.9 SEC (11.7-14.0) Prothromb Time International Ratio 1.4 (0.8-1.1) Sodium Level 141 mmol/L (136-145) Potassium Level 4.2 mmol/L (3.5-5.1) Chloride Level 106 mmol/L (98-107) Carbon Dioxide Level 30 mmol/L (21-32) Anion Gap 5 (6-14) Blood Urea Nitrogen 15 mg/dL (8-26) Creatinine 0.8 mg/dL (0.7-1.3) Estimated GFR (Cockcroft-Gault) 97.0 BUN/Creatinine Ratio 19 (6-20) Glucose Level 152 mg/dL (70-99) Calcium Level 8.5 mg/dL (8.5-10.1) Total Bilirubin 1.2 mg/dL (0.2-1.0) Aspartate Amino Transf (AST/SGOT) 42 U/L (15-37) Alanine Aminotransferase (ALT/SGPT) 32 U/L (16-63) Alkaline Phosphatase 110 U/L (46-116) Total Protein 6.2 g/dL (6.4-8.2) Albumin 2.2 g/dL (3.4-5.0) Albumin/Globulin Ratio 0.6 (1.0-1.7) Medications Current Medications Fentanyl Citrate (Fentanyl 2ml Vial) 50 mcg 1X ONCE IV Last administered on at 23:01; Start 08/21/18 at 22:00; Stop 08/21/18 at 22:02; Status DC Fentanyl Citrate (Fentanyl 2ml Vial) 50 mcg 1X ONCE IV Last administered on at 00:15; Start 08/22/18 at 00:00; Stop 08/22/18 at 00:01; Status DC Ondansetron HCl (Zofran) 4 mg PRN Q8HRS PRN IV NAUSEA/VOMITING; Start 08/22/18 at 00:30; Stop 08/23/18 at 00:29; Status DC Morphine Sulfate (Morphine Sulfate) 4 mg PRN Q2HR PRN IV PAIN Last administered on 08/22/18at 22:50; Start 08/22/18 at 00:30; Stop 08/23/18 at 00:29 ; Status DC Morphine Sulfate 5 mg/Ketorolac Tromethamine 30 mg/Ropivacaine 60 ml/ Epinephrine HCl 0.5 mg/Sodium Chloride 100 ml @ 100 mls/hr 1X ONCE INT ART Last administered on 08/23/18at 09:33; Start 08/23/18 at 06:00; Stop 08/23/18 at 06:59; Status DC Labetalol HCl (Normodyne Iv Push) 20 mg PRN Q2HR PRN IVP HYPERTENSION, SEE COMMENTS; Start 08/22/18 at 11:45 Oxycodone/ Acetaminophen (Percocet 5/325) 1 tab PRN Q4HRS PRN PO PAIN Last administered on 08/24/18at 02:03; Start 08/22/18 at 11:45; Stop 08/24/18 at 09:04 ; Status DC Ketorolac Tromethamine (Toradol 15mg Vial) 15 mg 1X ONCE IV Last administered on 08/22/18at 12:06; Start 08/22/18 at 11:45; Stop 08/22/18 at 11:51; Status DC Sodium Chloride 1,000 ml @ 100 mls/hr 1X ONCE IV Last administered on at 12:00; Start 08/22/18 at 12:00; Stop 08/22/18 at 21:59; Status DC Vitamin D (Vitamin D3) 5,000 unit DAILY PO Last administered on 08/26/18at 08:53 ; Start 08/23/18 at 09:00 Prochlorperazine Edisylate (Compazine) 5 mg PACU PRN PRN IV NAUSEA, MRX1; Start 08/23/18 at 07:00; Stop 08/24/18 at 06:59; Status DC Hydromorphone HCl (Dilaudid) 0.5 mg PRN Q10MIN PRN IV SEV PAIN, Second choice; Start 08/23/18 at 07:00; Stop 08/24/18 at 06:59; Status DC Lidocaine HCl (Xylocaine-Mpf 1% 2ml Vial) 2 ml PRN 1X PRN ID IV START; Start at 07:00; Stop 08/24/18 at 06:59; Status DC Ringer's Solution 1,000 ml @ 30 mls/hr Q24H IV Last administered on 08/23/18at 11:48; Start 08/23/18 at 07:00; Stop 08/23/18 at 18:59; Status DC Morphine Sulfate (Morphine Sulfate) 1 mg PRN Q10MIN PRN IV SEVERE PAIN Last administered on 08/23/18at 11:34; Start 08/23/18 at 07:00; Stop 08/24/18 at 06:59 ; Status DC Fentanyl Citrate (Fentanyl 2ml Vial) 50 mcg PRN Q5MIN PRN IV MODERATE TO SEVERE PAIN Last administered on 08/23/18at 11:12; Start 08/23/18 at 07:00; Stop 08/24/18 at 06:59; Status DC Fentanyl Citrate (Fentanyl 2ml Vial) 25 mcg PRN Q5MIN PRN IV MILD PAIN; Start 08/23/18 at 07:00; Stop 08/24/18 at 06:59; Status DC Ondansetron HCl (Zofran) 4 mg PRN Q6HRS PRN IV NAUSEA/VOMITING; Start 08/23/18 at 07:00; Stop 08/24/18 at 06:59; Status DC Lidocaine HCl (Glydo (Lidocaine) Jelly) 1 rachelle 1X ONCE MM Last administered on 08/22/18at 14:47; Start 08/22/18 at 14:30; Stop 08/22/18 at 14:31; Status DC Cefazolin Sodium 1 gm/Dextrose 50 ml @ 100 mls/hr 1X ONCE IV ; Start 08/22/18 at 19:30; Stop 08/22/18 at 19:59; Status UNV Cefazolin Sodium 3 gm/Dextrose 100 ml @ 200 mls/hr 1X PREOP PRN IV PER PROTOCOL Last administered on 08/23/18at 09:11; Start 08/22/18 at 19:45 Dexamethasone Sodium Phosphate (Decadron) 20 mg STK-MED ONCE .ROUTE ; Start at 07:27; Stop 08/23/18 at 07:29; Status DC Ondansetron HCl (Zofran) 4 mg STK-MED ONCE .ROUTE ; Start 08/23/18 at 07:27; Stop 08/23/18 at 07:29; Status DC Lidocaine HCl (Lidocaine Pf 2% Vial) 5 ml STK-MED ONCE .ROUTE ; Start 08/23/18 at 07:27; Stop 08/23/18 at 07:30; Status DC Propofol 20 ml @ As Directed STK-MED ONCE IV ; Start 08/23/18 at 07:28; Stop at 07:30; Status DC Fentanyl Citrate (Fentanyl 2ml Vial) 100 mcg STK-MED ONCE .ROUTE ; Start at 07:56; Stop 08/23/18 at 07:58; Status DC Midazolam HCl (Versed) 2 mg STK-MED ONCE .ROUTE ; Start 08/23/18 at 07:56; Stop 08/23/18 at 07:58; Status DC Rocuronium Galt (Zemuron) 50 mg STK-MED ONCE .ROUTE ; Start 08/23/18 at 08:56 ; Stop 08/23/18 at 08:58; Status DC Fentanyl Citrate (Fentanyl 2ml Vial) 100 mcg STK-MED ONCE .ROUTE ; Start at 09:18; Stop 08/23/18 at 09:20; Status DC Neostigmine Methylsulfate (Bloxiverz) 10 mg STK-MED ONCE .ROUTE ; Start at 10:01; Stop 08/23/18 at 10:03; Status DC Glycopyrrolate (Robinul) 1 mg STK-MED ONCE .ROUTE ; Start 08/23/18 at 10:01; Stop 08/23/18 at 10:03; Status DC Sevoflurane (Ultane) 60 ml STK-MED ONCE IH ; Start 08/23/18 at 10:05; Stop 08/23 at 10:07; Status DC Cefazolin Sodium 3 gm/Dextrose 100 ml @ 200 mls/hr Q6H IV Last administered on 08/24/18at 03:08; Start 08/23/18 at 15:00; Stop 08/24/18 at 03:29; Status DC Warfarin Sodium (Coumadin Per Pharmacy) 1 each PRN DAILY PRN MC SEE COMMENTS Last administered on 08/25/18at 13:20; Start 08/23/18 at 10:45 Warfarin Sodium (Coumadin) 5 mg 1X ONCE PO Last administered on 08/23/18at 17: 29; Start 08/23/18 at 17:00; Stop 08/23/18 at 17:01; Status DC Morphine Sulfate (Morphine Sulfate) 4 mg STK-MED ONCE .ROUTE ; Start 08/23/18 at 11:33; Stop 08/23/18 at 11:35; Status DC Enoxaparin Sodium (Lovenox Per Pharmacy Prophylaxis Dosing) 1 each PRN DAILY PRN MC SEE COMMENTS; Start 08/23/18 at 13:00; Stop 08/25/18 at 08:00; Status DC Enoxaparin Sodium (Lovenox 40mg Syringe) 40 mg QHS SQ Last administered on 08/24at 21:43; Start 08/23/18 at 21:00; Stop 08/25/18 at 08:00; Status DC Oxycodone/ Acetaminophen (Percocet 7.5/ 325) 1 tab PRN Q3HRS PRN PO PAIN Last administered on 08/26/18at 08:53; Start 08/24/18 at 09:15 Warfarin Sodium (Coumadin) 5 mg 1X WARF ONCE PO Last administered on at 17:32; Start 08/24/18 at 16:00; Stop 08/24/18 at 16:01; Status DC Warfarin Sodium (Coumadin) 4 mg 1X WARF ONCE PO Last administered on at 18:05; Start 08/25/18 at 16:00; Stop 08/25/18 at 16:01; Status DC Vitals/I & O Vital Sign - Last 24 Hours 08/25/18 08/25/18 08/25/18 08/25/18 11:00 14:55 15:00 18:05 Temp 98.2 98.0 98.2 98.0 Pulse 85 84 Resp 18 18 B/P (MAP) 109/62 (78) 124/61 (82) Pulse Ox 95 97 O2 Delivery Room Air Room Air Room Air Room Air 08/25/18 08/25/18 08/25/18 08/25/18 19:00 19:50 22:20 23:00 Temp 98.4 99.1 98.4 99.1 Pulse 80 87 Resp 18 16 18 B/P (MAP) 140/54 (82) 129/51 (77) Pulse Ox 95 95 O2 Delivery Room Air Room Air Room Air Room Air 08/26/18 08/26/18 08/26/18 08/26/18 03:00 04:20 05:20 07:00 Temp 98.9 97.9 98.9 97.9 Pulse 98 82 Resp 18 16 16 18 B/P (MAP) 131/63 (85) 101/48 (65) Pulse Ox 96 94 O2 Delivery Room Air Room Air Room Air Room Air 08/26/18 08/26/18 08:00 08:53 O2 Delivery Room Air Room Air Intake and Output 08/25/18 08/25/18 08/26/18 15:01 23:01 07:01 Intake Total 650 ml Output Total 850 ml Balance -200 ml IRMA WOOD MD Aug 26, 2018 10:37
[2018-08-26 11:00] VITALS: BP 124/70
--- NOTE | 2018-08-26 11:46 | NUR ---
Pharmacy Warfarin Dosing Note S:Pharmacy consulted to assist with anticoagulation therapy started with target INR: 1.6 - 2.5 O:ZELALEM PRATER is a 63 year old M with Hip Fracture LABS: Last INR: 1.4 Last HGB: 8.4 Last HCT: 25.5 Last PLT: 86 Last dose of 4 mg given on 08/25/18 at 1805 Previous Regimen: Vitamin K given: Drug Interaction Changes: Ongoing Drug Interactions: A:INR of 1.4 is below desired range. Target range for this patient is: 1.6 - 2.5 P: Warfarin dose: 5 mg Today at 1600. Bridge Therapy: None . Next INR due tomorrow. Pharmacy anticoagulation service will continue to follow. David Mckinney [facility], 08/26/18 [id number]
--- NOTE | 2018-08-26 13:10 | PDOC3 ---
Discharge Summary Date of Admission: Aug 22, 2018 Date of Discharge: Aug 26, 2018 Follow-Up: 1-2 days Admitting Diagnosis comment: DISCHARGE DX Chief Complaint fall on ice outside restaurant acute pain to hip left hip fracture. , ACUTE TRAUMATIC morbid obesity, BMI 40 POD# 3 S/P L Hip IM Nail pain is marked with any movement no event he cannot transfer well, having severe pain with the bedpan Vitals Vitals Vital Signs Date Time Temp Pulse Resp B/P (MAP) Pulse Ox O2 Delivery O2 Flow Rate FiO2 08/26/18 08:53 Room Air 08/26/18 07:00 97.9 82 18 101/48 (65) 94 97.9 Physical Exam General: Alert, Oriented X3, Cooperative, No acute distress Heart: Regular rate, Normal S1 Lungs: Clear Abdomen: Normal bowel sounds, Soft, No tenderness Extremities: No cyanosis, No edema, Normal pulses Skin: No rashes FINAL DIAGNOSIS Problems Medical Problems: (1) Hip fracture Status: Acute Brief Hospital Course Mr. Hines is a 63 old [sex] who presented with [ ACUTE HIP FX] CONDITION AT DISCHARGE: Improved Discharge Medications Current Medications Fentanyl Citrate (Fentanyl 2ml Vial) 50 mcg 1X ONCE IV Last administered on at 23:01; Start 08/21/18 at 22:00; Stop 08/21/18 at 22:02; Status DC Fentanyl Citrate (Fentanyl 2ml Vial) 50 mcg 1X ONCE IV Last administered on at 00:15; Start 08/22/18 at 00:00; Stop 08/22/18 at 00:01; Status DC Ondansetron HCl (Zofran) 4 mg PRN Q8HRS PRN IV NAUSEA/VOMITING; Start 08/22/18 at 00:30; Stop 08/23/18 at 00:29; Status DC Morphine Sulfate (Morphine Sulfate) 4 mg PRN Q2HR PRN IV PAIN Last administered on 08/22/18at 22:50; Start 08/22/18 at 00:30; Stop 08/23/18 at 00:29 ; Status DC Morphine Sulfate 5 mg/Ketorolac Tromethamine 30 mg/Ropivacaine 60 ml/ Epinephrine HCl 0.5 mg/Sodium Chloride 100 ml @ 100 mls/hr 1X ONCE INT ART Last administered on 08/23/18at 09:33; Start 08/23/18 at 06:00; Stop 08/23/18 at 06:59; Status DC Labetalol HCl (Normodyne Iv Push) 20 mg PRN Q2HR PRN IVP HYPERTENSION, SEE COMMENTS; Start 08/22/18 at 11:45 Oxycodone/ Acetaminophen (Percocet 5/325) 1 tab PRN Q4HRS PRN PO PAIN Last administered on 08/24/18at 02:03; Start 08/22/18 at 11:45; Stop 08/24/18 at 09:04 ; Status DC Ketorolac Tromethamine (Toradol 15mg Vial) 15 mg 1X ONCE IV Last administered on 08/22/18at 12:06; Start 08/22/18 at 11:45; Stop 08/22/18 at 11:51; Status DC Sodium Chloride 1,000 ml @ 100 mls/hr 1X ONCE IV Last administered on at 12:00; Start 08/22/18 at 12:00; Stop 08/22/18 at 21:59; Status DC Vitamin D (Vitamin D3) 5,000 unit DAILY PO Last administered on 08/26/18at 08:53 ; Start 08/23/18 at 09:00 Prochlorperazine Edisylate (Compazine) 5 mg PACU PRN PRN IV NAUSEA, MRX1; Start 08/23/18 at 07:00; Stop 08/24/18 at 06:59; Status DC Hydromorphone HCl (Dilaudid) 0.5 mg PRN Q10MIN PRN IV SEV PAIN, Second choice; Start 08/23/18 at 07:00; Stop 08/24/18 at 06:59; Status DC Lidocaine HCl (Xylocaine-Mpf 1% 2ml Vial) 2 ml PRN 1X PRN ID IV START; Start at 07:00; Stop 08/24/18 at 06:59; Status DC Ringer's Solution 1,000 ml @ 30 mls/hr Q24H IV Last administered on 08/23/18at 11:48; Start 08/23/18 at 07:00; Stop 08/23/18 at 18:59; Status DC Morphine Sulfate (Morphine Sulfate) 1 mg PRN Q10MIN PRN IV SEVERE PAIN Last administered on 08/23/18at 11:34; Start 08/23/18 at 07:00; Stop 08/24/18 at 06:59 ; Status DC Fentanyl Citrate (Fentanyl 2ml Vial) 50 mcg PRN Q5MIN PRN IV MODERATE TO SEVERE PAIN Last administered on 08/23/18at 11:12; Start 08/23/18 at 07:00; Stop 08/24/18 at 06:59; Status DC Fentanyl Citrate (Fentanyl 2ml Vial) 25 mcg PRN Q5MIN PRN IV MILD PAIN; Start 08/23/18 at 07:00; Stop 08/24/18 at 06:59; Status DC Ondansetron HCl (Zofran) 4 mg PRN Q6HRS PRN IV NAUSEA/VOMITING; Start 08/23/18 at 07:00; Stop 08/24/18 at 06:59; Status DC Lidocaine HCl (Glydo (Lidocaine) Jelly) 1 rachelle 1X ONCE MM Last administered on 08/22/18at 14:47; Start 08/22/18 at 14:30; Stop 08/22/18 at 14:31; Status DC Cefazolin Sodium 1 gm/Dextrose 50 ml @ 100 mls/hr 1X ONCE IV ; Start 08/22/18 at 19:30; Stop 08/22/18 at 19:59; Status UNV Cefazolin Sodium 3 gm/Dextrose 100 ml @ 200 mls/hr 1X PREOP PRN IV PER PROTOCOL Last administered on 08/23/18at 09:11; Start 08/22/18 at 19:45 Dexamethasone Sodium Phosphate (Decadron) 20 mg STK-MED ONCE .ROUTE ; Start at 07:27; Stop 08/23/18 at 07:29; Status DC Ondansetron HCl (Zofran) 4 mg STK-MED ONCE .ROUTE ; Start 08/23/18 at 07:27; Stop 08/23/18 at 07:29; Status DC Lidocaine HCl (Lidocaine Pf 2% Vial) 5 ml STK-MED ONCE .ROUTE ; Start 08/23/18 at 07:27; Stop 08/23/18 at 07:30; Status DC Propofol 20 ml @ As Directed STK-MED ONCE IV ; Start 08/23/18 at 07:28; Stop at 07:30; Status DC Fentanyl Citrate (Fentanyl 2ml Vial) 100 mcg STK-MED ONCE .ROUTE ; Start at 07:56; Stop 08/23/18 at 07:58; Status DC Midazolam HCl (Versed) 2 mg STK-MED ONCE .ROUTE ; Start 08/23/18 at 07:56; Stop 08/23/18 at 07:58; Status DC Rocuronium [place] (Zemuron) 50 mg STK-MED ONCE .ROUTE ; Start 08/23/18 at 08:56 ; Stop 08/23/18 at 08:58; Status DC Fentanyl Citrate (Fentanyl 2ml Vial) 100 mcg STK-MED ONCE .ROUTE ; Start at 09:18; Stop 08/23/18 at 09:20; Status DC Neostigmine Methylsulfate (Bloxiverz) 10 mg STK-MED ONCE .ROUTE ; Start at 10:01; Stop 08/23/18 at 10:03; Status DC Glycopyrrolate (Robinul) 1 mg STK-MED ONCE .ROUTE ; Start 08/23/18 at 10:01; Stop 08/23/18 at 10:03; Status DC Sevoflurane (Ultane) 60 ml STK-MED ONCE IH ; Start 08/23/18 at 10:05; Stop 08/23 at 10:07; Status DC Cefazolin Sodium 3 gm/Dextrose 100 ml @ 200 mls/hr Q6H IV Last administered on 08/24/18at 03:08; Start 08/23/18 at 15:00; Stop 08/24/18 at 03:29; Status DC Warfarin Sodium (Coumadin Per Pharmacy) 1 each PRN DAILY PRN MC SEE COMMENTS Last administered on 08/26/18at 11:45; Start 08/23/18 at 10:45 Warfarin Sodium (Coumadin) 5 mg 1X ONCE PO Last administered on 08/23/18at 17: 29; Start 08/23/18 at 17:00; Stop 08/23/18 at 17:01; Status DC Morphine Sulfate (Morphine Sulfate) 4 mg STK-MED ONCE .ROUTE ; Start 08/23/18 at 11:33; Stop 08/23/18 at 11:35; Status DC Enoxaparin Sodium (Lovenox Per Pharmacy Prophylaxis Dosing) 1 each PRN DAILY PRN MC SEE COMMENTS; Start 08/23/18 at 13:00; Stop 08/25/18 at 08:00; Status DC Enoxaparin Sodium (Lovenox 40mg Syringe) 40 mg QHS SQ Last administered on 08/24at 21:43; Start 08/23/18 at 21:00; Stop 08/25/18 at 08:00; Status DC Oxycodone/ Acetaminophen (Percocet 7.5/ 325) 1 tab PRN Q3HRS PRN PO PAIN Last administered on 08/26/18at 08:53; Start 08/24/18 at 09:15 Warfarin Sodium (Coumadin) 5 mg 1X WARF ONCE PO Last administered on at 17:32; Start 08/24/18 at 16:00; Stop 08/24/18 at 16:01; Status DC Warfarin Sodium (Coumadin) 4 mg 1X WARF ONCE PO Last administered on at 18:05; Start 08/25/18 at 16:00; Stop 08/25/18 at 16:01; Status DC Warfarin Sodium (Coumadin) 5 mg 1X WARF ONCE PO ; Start 08/26/18 at 16:00; Stop 08/26/18 at 16:01 Vital Signs Vital Signs Date Time Temp Pulse Resp B/P (MAP) Pulse Ox O2 Delivery O2 Flow Rate FiO2 08/26/18 11:00 97.6 90 18 124/70 (88) 94 Room Air 97.6 Labs Laboratory Tests Test 08/25/18 04:30 08/26/18 03:35 Prothrombin Time 17.4 SEC (11.7-14.0) 16.9 SEC (11.7-14.0) Prothromb Time International Ratio 1.5 (0.8-1.1) 1.4 (0.8-1.1) White Blood Count 2.5 x10^3/uL (4.0-11.0) Red Blood Count 2.72 x10^6/uL (4.30-5.70) Hemoglobin 8.4 g/dL (13.0-17.5) Hematocrit 25.5 % (39.0-53.0) Mean Corpuscular Volume 94 fL (79-100) Mean Corpuscular Hemoglobin 31 pg (25-35) Mean Corpuscular Hemoglobin Concent 33 g/dL (31-37) Red Cell Distribution Width 15.2 % (11.5-14.5) Platelet Count 86 x10^3/uL (140-400) Neutrophils (%) (Auto) 54 % (31-73) Lymphocytes (%) (Auto) 28 % (24-48) Monocytes (%) (Auto) 15 % (0-9) Eosinophils (%) (Auto) 2 % (0-3) Basophils (%) (Auto) 1 % (0-3) Neutrophils # (Auto) 1.4 x10^3uL (1.8-7.7) Lymphocytes # (Auto) 0.7 x10^3/uL (1.0-4.8) Monocytes # (Auto) 0.4 x10^3/uL (0.0-1.1) Eosinophils # (Auto) 0.1 x10^3/uL (0.0-0.7) Basophils # (Auto) 0.0 x10^3/uL (0.0-0.2) Sodium Level 141 mmol/L (136-145) Potassium Level 4.2 mmol/L (3.5-5.1) Chloride Level 106 mmol/L (98-107) Carbon Dioxide Level 30 mmol/L (21-32) Anion Gap 5 (6-14) Blood Urea Nitrogen 15 mg/dL (8-26) Creatinine 0.8 mg/dL (0.7-1.3) Estimated GFR (Cockcroft-Gault) 97.0 BUN/Creatinine Ratio 19 (6-20) Glucose Level 152 mg/dL (70-99) Calcium Level 8.5 mg/dL (8.5-10.1) Total Bilirubin 1.2 mg/dL (0.2-1.0) Aspartate Amino Transf (AST/SGOT) 42 U/L (15-37) Alanine Aminotransferase (ALT/SGPT) 32 U/L (16-63) Alkaline Phosphatase 110 U/L (46-116) Total Protein 6.2 g/dL (6.4-8.2) Albumin 2.2 g/dL (3.4-5.0) Albumin/Globulin Ratio 0.6 (1.0-1.7) Laboratory Tests Test 08/26/18 03:35 White Blood Count 2.5 x10^3/uL (4.0-11.0) Red Blood Count 2.72 x10^6/uL (4.30-5.70) Hemoglobin 8.4 g/dL (13.0-17.5) Hematocrit 25.5 % (39.0-53.0) Mean Corpuscular Volume 94 fL (79-100) Mean Corpuscular Hemoglobin 31 pg (25-35) Mean Corpuscular Hemoglobin Concent 33 g/dL (31-37) Red Cell Distribution Width 15.2 % (11.5-14.5) Platelet Count 86 x10^3/uL (140-400) Neutrophils (%) (Auto) 54 % (31-73) Lymphocytes (%) (Auto) 28 % (24-48) Monocytes (%) (Auto) 15 % (0-9) Eosinophils (%) (Auto) 2 % (0-3) Basophils (%) (Auto) 1 % (0-3) Neutrophils # (Auto) 1.4 x10^3uL (1.8-7.7) Lymphocytes # (Auto) 0.7 x10^3/uL (1.0-4.8) Monocytes # (Auto) 0.4 x10^3/uL (0.0-1.1) Eosinophils # (Auto) 0.1 x10^3/uL (0.0-0.7) Basophils # (Auto) 0.0 x10^3/uL (0.0-0.2) Prothrombin Time 16.9 SEC (11.7-14.0) Prothromb Time International Ratio 1.4 (0.8-1.1) Sodium Level 141 mmol/L (136-145) Potassium Level 4.2 mmol/L (3.5-5.1) Chloride Level 106 mmol/L (98-107) Carbon Dioxide Level 30 mmol/L (21-32) Anion Gap 5 (6-14) Blood Urea Nitrogen 15 mg/dL (8-26) Creatinine 0.8 mg/dL (0.7-1.3) Estimated GFR (Cockcroft-Gault) 97.0 BUN/Creatinine Ratio 19 (6-20) Glucose Level 152 mg/dL (70-99) Calcium Level 8.5 mg/dL (8.5-10.1) Total Bilirubin 1.2 mg/dL (0.2-1.0) Aspartate Amino Transf (AST/SGOT) 42 U/L (15-37) Alanine Aminotransferase (ALT/SGPT) 32 U/L (16-63) Alkaline Phosphatase 110 U/L (46-116) Total Protein 6.2 g/dL (6.4-8.2) Albumin 2.2 g/dL (3.4-5.0) Albumin/Globulin Ratio 0.6 (1.0-1.7) Allergies Allergies Coded Allergies Type Severity Reaction Last Updated Verified No Known Drug Allergies 08/21/18 No Disposition/Orders: Other (TO REHAB ) IRMA WOOD MD Aug 26, 2018 13:10
--- NOTE | 2018-08-26 13:15 | DISCH ---
DISCHARGE DISCHARGE INFORMATION: FINAL DIAGNOSIS Problems Medical Problems: (1) Hip fracture Status: Acute CONDITION ON DISCHARGE: Stable CODE STATUS: Code Status: Full PENITENTIARY: SNF STAY <30 DAYS: No HOSPICE: HOSPICE: No HOSPICE EVAL & TREAT: No LTAC: ADMIT TO LTAC: No POST DISCHARGE ORDERS: ACTIVITY ORDERS: Activity as tolerated DIET AFTER DISCHARGE: Cardiac WOUND/INCISION CARE: Other, see below (TRANSFER TO [facility] TODAY, DOSE COUMADIN X 6 WEEKS) CHECKS AFTER DISCHARGE: CHECKS AFTER DISCHARGE: Check blood press - daily TREATMENT/EQUIPMENT ORDERS: Physical Therapy For: Evalulation/Treatment Occupational Therapy For: Evaluation/Treatment Speech Language Pathology For: Evaluation/Treatment IRMA WOOD MD Aug 26, 2018 13:15
[2018-08-26] MEDS ORDERED: CHOL5000 PO (13:18)
[2018-08-26] MEDS ORDERED: WARF-78 PO (13:18)
[2018-08-26] MEDS ORDERED: OXYC1TAB19 PO (13:18)
--- NOTE | 2018-08-26 14:03 | NUR ---
SW following. Pt will discharge to [facility] today at 1700. Pt had catheter removed and will need to void first. SW will continue to follow. Pt choice and rights letter signed and placed on chart. RN notified.
[2018-08-26 15:37] VITALS: BP 129/64
[2018-08-26] MEDS ORDERED: WARFARIN 5 MG TABLET. PO ONE (16:00)
--- NOTE | 2018-08-26 16:09 | NUR ---
removed goff catheter at 1315 without complications. will continue to monitor pt output.
--- NOTE | 2018-08-26 17:29 | NUR ---
pt is discharged to [facility] at 1719 via stretcher via [facility]. pt is in stable condition. pt has all belongings with him. gave report to Kami at [facility] and she stated she had no further questions for me.
[2019-01-20] MEDS ORDERED: TRAM50TA PO (10:55)
[2019-01-20] MEDS ORDERED: FERR325T72 PO (10:55)
[2019-01-20] MEDS ORDERED: THIA100T22 PO (10:55)
[2019-01-20] MEDS ORDERED: HYDR-2761 PO (10:55)
[2019-01-20] MEDS ORDERED: LACT20SO PO (10:55)
[2019-01-20] MEDS ORDERED: Pantoprazole PO (10:55)
[2019-01-20] MEDS ORDERED: FOLI1TAB16 PO (10:55)
== END 2018-08-26 17:19 | DRG 481 ==
LOC: ER 21:24 → 4 NORTH 08-22 00:16
PROVIDERS: ADMIT Internal Medicine; ATTEND Internal Medicine
PROC: 0QS736Z Reposition Left Upper Femur with Intramedullary Internal Fixation Device, Percutaneous Approach (ICD-10-PCS; principal; 2018-08-23 09:00)
DX: S72.142A Displaced intertrochanteric fracture of left femur, initial encounter for closed fracture (principal); Z68.41 Body mass index [BMI] 40.0-44.9, adult; E66.01 Morbid (severe) obesity due to excess calories; W00.0XXA Fall on same level due to ice and snow, initial encounter; Y93.89 Activity, other specified; Y92.89 Other specified places as the place of occurrence of the external cause; Y99.8 Other external cause status; Z79.899 Other long term (current) drug therapy; Z82.49 Family history of ischemic heart disease and other diseases of the circulatory system
CPT/HCPCS: 36415; 70450; 71045; 72125; 73502; 73700; 76001; 80053; 85025; 85610; 93005; 96361; 96374; 96375; 96376; A7015; C1713; C1887; J0171; J0690; J1100; J1650; J1885; J2001; J2250; J2270; J2405; J2704; J2710; J2795; J3010; J3490; J7030; J7120; 97110; 97530; 97535; 99285-25; G0378